=== PATIENT | male | born 1960 | race Caucasian/White ===

== ENCOUNTER → 2018-01-14 | Outpatient (REF) | payer BC, OTHER | LOC: M LAB REF 17:20 | DX: D51.9 Vitamin B12 deficiency anemia, unspecified (principal) | CPT/HCPCS: 82607 ==

== ENCOUNTER → 2018-08-06 | Outpatient (CLI) | payer BC, OTHER ==
[~2018-08-06] MED LIST: CLAR10CA3 PO; EPIP0.3I2 IM; FISH1000 PO; FLOM0.4C39 PO; GLUCCAP4 PO; MONT10TA2 PO; PRAV80TA2 PO; VITAD1000T PO; XARE10TA PO; ZYLO300T6 PO
[2018-08-06 18:26] LABS: CALCIUM LEVEL 8.9 MG/DL (8.5-10.1); CREATININE FOR GFR 1.36 MG/DL (0.70-1.30); GLOMERULAR FILTRATION RATE 57.3 (>56); POTASSIUM SERUM 4.4 MEQ/L (3.5-5.1); PROSTATIC SPECIFIC AG MONITOR 1.82 NG/ML (< 4.00)
[2018-08-06 18:38] LABS: AMORPHOUS SEDIMENT SMALL (NEGATIVE); APPEARANCE, URINE CLOUDY (CLEAR); BACTERIA, URINE AUTO NEGATIVE (NEGATIVE); BILIRUBIN, URINE AUTO NEGATIVE (NEGATIVE); BLOOD, URINE BLOOD NEGATIVE (NEGATIVE); COLOR, URINE YELLOW (YELLOW); GLUCOSE, URINE (UA) AUTO NEGATIVE (NEGATIVE); KETONE, URINE AUTO NEGATIVE (NEGATIVE); LEUKOCYTE ESTERASE, URINE AUTO NEGATIVE (NEGATIVE); MUCUS, URINE SMALL (NEGATIVE); NITRITE, URINE AUTO NEGATIVE (NEGATIVE); PROTEIN, URINE AUTO NEGATIVE (NEGATIVE); RBC, URINE AUTO 1 /HPF (0-3); SPECIFIC GRAVITY URINE AUTO 1.015 (1.002-1.035); SQUAMOUS EPITHELIAL CELL UR AU 0 /HPF (0-6); UROBILINOGEN, URINE AUTO 0.2 mg/dL (0.0-2.0); WBC, URINE AUTO 0 /HPF (0-3)
[2018-08-06 18:40] LABS: HEMOGLOBIN 15.4 g/dl (13.5-17.5); MEAN CORPUSCULAR HEMOGLOBIN 33.9 pg (27.0-33.0); MEAN CORPUSCULAR HGB CONC 32.8 g/dl (32.0-36.5); MEAN CORPUSCULAR VOLUME 103.5 fl (80.0-96.0); PLATELET COUNT, AUTOMATED 162 10^3/uL (150-450); RED BLOOD COUNT 4.54 10^6/uL (4.30-6.10); WHITE BLOOD COUNT 3.9 10^3/uL (4.0-10.0)
[2018-08-06 19:00] LABS: INR 1.12; PROTHROMBIN TIME 14.6 SECONDS (12.1-14.4)
[2018-08-06 19:01] LABS: PARTIAL THROMBOPLASTIN TIME 27.1 SECONDS (25.4-37.6)
--- NOTE | 2018-08-07 09:12 | REP ---
PA and lateral chest three views: Comparison is 01/18/2004. The lung alvarez are clear. The cardiac size is normal. The frankie, mediastinum, and skeletal structures are unremarkable. Impression: Negative PA and lateral chest. There is no interval change Electronically Signed by Kirill Yang MD 08/06/2018 10:14 A
== END ==
LOC: M ADAMS 09:45
PROVIDERS: ATTEND Nurse Practitioner Family
DX: Z01.818 Encounter for other preprocedural examination (principal); Z12.5 Encounter for screening for malignant neoplasm of prostate; N20.0 Calculus of kidney

== ENCOUNTER 2018-08-15 08:23 | Day surgery (SDC) | payer BC, OTHER ==
[~2018-08-15] VITALS: Ht 185.4 cm; Wt 85.5 kg
[~2018-08-15 08:23] MED LIST changes: +LIDOCAINE 1% MDV 20ML VIAL SQ PRN
[2018-08-15] MEDS ORDERED: CONRAY-60 60% 50ML VIAL (Q9961) As Ordered ONE (08:41)
[2018-08-15] MEDS ORDERED: LR 1,000 ML IV ONE (09:00)
[2018-08-15] MEDS ORDERED: LIDOCAINE 2% INJ 100 MG/5 ML SDV (FOR ANES.) As Ordered ONE (12:00)
[2018-08-15] MEDS ORDERED: dexameTHASONE 4 MG/ML 1ML VIAL (J1100) As Ordered ONE (12:00)
[2018-08-15] MEDS ORDERED: PROPOFOL 200 MG/20 ML VIAL As Ordered ONE (12:00)
[2018-08-15] MEDS ORDERED: ONDANSETRON 4MG/2ML VIAL (J2405) As Ordered ONE (12:00)
[2018-08-15] MEDS ORDERED: fentaNYL 100 MCG/2 ML INJECTION (J3010) As Ordered ONE (12:01)
[2018-08-15] MEDS ORDERED: MIDAZOLAM INJ 2 MG/2 ML VIAL (J2250) As Ordered ONE (12:01)
[2018-08-15] MEDS ORDERED: ROCURONIUM BROMIDE 50 MG/5 ML VIAL As Ordered ONE (18:53)
[2018-08-15] MEDS ORDERED: PERCOCET 5MG/325MG TAB PO PRN ×5 (20:15→20:30)
[2018-08-15] MEDS ORDERED: KETOROLAC 30 MG/ML VIAL (J1885) IV PRN (20:30)
[2018-08-15] MEDS ORDERED: METOCLOPRAMIDE INJ 10MG/2ML VIAL (J2765) IV PRN (20:30)
[2018-08-15] MEDS ORDERED: ONDANSETRON 4MG/2ML VIAL (J2405) IV PRN (20:30)
[2018-08-15] MEDS ORDERED: fentaNYL 100 MCG/2 ML INJECTION (J3010) IV PRN (20:30)
[2018-08-15] MEDS ORDERED: LR 1,000 ML IV SCH (20:30)
[2018-08-15] MEDS ORDERED: oxyBUTYnin 5 MG TAB PO ONE (22:00)
[2018-08-15 23:18] VITALS: BP 140/84
--- NOTE | 2018-08-16 07:34 | REP ---
REASON: Retrograde pyelography due to nephrolithiasis. Four spot views were obtained in my absentia using a portable C-ARM device during retrograde pyelography and bilaterally and bilateral double pigtail catheter placement. The double pig-tail catheters are seen. The proximal portion of each os in the region of the renal pelvis and the distal portion of each is in the urinary bladder. Electronically Signed by Tony Daniels DO 08/16/2018 04:33 P
--- NOTE | 2018-08-16 20:26 | RO ---
DATE OF PROCEDURE: 08/15/2018 PREPROCEDURE DIAGNOSIS: Bilateral kidney stones. POSTPROCEDURE DIAGNOSIS: Bilateral kidney stones. PROCEDURE: Cystoscopy, bilateral ureteroscopy with basket extraction of stones, bilateral retrograde pyelogram with intraoperative interpretation of images, bilateral ureteral stent placement. SURGEON: Dr. David Abdalla BANDING MACHINE OPERATOR: None. ANESTHESIA: General. OPERATIVE INDICATIONS: This is a 58-year-old male who was originally found to have a 4 mm obstructing proximal right ureteral stone, as well as a left-sided kidney stone. He was brought to the operating room today for the above listed procedure. DESCRIPTION OF PROCEDURE: The patient was brought to the operating room and general anesthesia was induced. Prophylactic antibiotics were infused. He was then placed in the dorsal lithotomy position and prepped and draped in the usual sterile fashion. At this point, a rigid cystoscope was then inserted into the urethral meatus and advanced into the bladder. Once inside the bladder, a guidewire was advanced up the right collecting system. I then advanced the ureteral access sheath over the wire. I went up the access sheath with a flexible ureteroscope, and the right kidney was thoroughly examined. No stones were seen within the right kidney after thoroughly examining it. A retrograde pyelogram was performed. It was notable for mild right hydronephrosis with no extravasation. I then examined the proximal ureter. No stones were seen within the ureter, indicating that he had passed this proximal ureteral stone. The ureteroscope was then withdrawn along with the access sheath. At this point, the previously placed wire was utilized to advance a 6-Belarusian x 22-32 cm JJ ureteral stent up into the right collecting system. The wire was then removed, and there were adequate curls of the stent in the right renal pelvis and in the bladder. At this point, a wire was advanced up the left collecting system. I then advanced an access sheath up the left collecting system, and then went up the access sheath with a flexible ureteroscope. The left kidney was thoroughly examined. The only stone seen was approximately 3-4 mm in size. I did not see any larger stones after examining it several times. A retrograde pyelogram was performed; it was notable for mild left hydronephrosis. No extravasation. That 4 mm stone was removed with a basket. I then withdrew through the ureteroscope along with the access sheath and no stones were seen within the ureter. Once that was done, the wire was utilized to advance a 6-Belarusian x 22-32 cm JJ ureteral stent up into the left collecting system. The wire was then removed, and there were adequate curls of the stent in the left renal pelvis and in the bladder. The bladder was then emptied of all fluids, and this marked the conclusion of the procedure. The patient was then taken out of the dorsal lithotomy position, awakened from anesthesia and transported to the recovery room in stable condition. Estimated blood loss: 5 mL. Complications: None. Specimens: Kidney stones. PLAN: The patient will followup in the clinic in approximately 2 weeks for stent removal. edited: 08/17/2018 1222 tkf MAME
== END 2018-08-15 23:44 | disposition home or self-care (01) ==
LOC: M SDC 08:23
PROVIDERS: ATTEND Urology
DX: N20.2 Calculus of kidney with calculus of ureter (principal); E78.5 Hyperlipidemia, unspecified; Z91.030 Bee allergy status; Z79.899 Other long term (current) drug therapy; Z79.01 Long term (current) use of anticoagulants; Z86.718 Personal history of other venous thrombosis and embolism
CPT/HCPCS: 52332; 52352; 74420; 82360; 88300; C1769; C1894; C2617; J0690; J1100; J1885; J2250; J2405; J3010; Q9961

== ENCOUNTER → 2019-03-21 | Outpatient (CLI) | payer BC, OTHER ==
[~2019-03-21] MED LIST changes: +CHOL100029 PO; -LIDOCAINE 1% MDV 20ML VIAL SQ PRN; -VITAD1000T PO
--- NOTE | 2019-03-21 08:35 | REPPI ---
Clinical: Kidney stone. Technique: Two supine views of the abdomen and pelvis. Findings: Small calculi overlying the upper pole right kidney in total measure up to approximately 5.6 mm and may represent small grouping of nonobstructing nephroliths. Further evaluation of the urinary tract system is limited due to overlying bowel gas pattern. 3 mm calcification in the left lexis pelvis likely phleboliths. The bowel gas pattern is relatively nonspecific with a prominent amount of retained fecal material noted in the cecum through mid transverse colon somewhat limiting evaluation of the right kidney. No organomegaly. Skeletal structures demonstrate age-related changes. Impression: Possible small grouping of left upper pole renal calculi measuring approximately 5.6 mm total. Evaluation of the right kidney is significantly limited due to overlying bowel gas. Electronically Signed by Satish Martínez MD 03/21/2019 08:26 A
== END ==
LOC: M PLAIMG 08:01 → M PLALAB 08:01
PROVIDERS: ATTEND Urology
DX: N20.0 Calculus of kidney (principal)

== ENCOUNTER → 2019-04-21 | Outpatient (CLI) | payer BC, OTHER ==
--- NOTE | 2019-04-21 18:07 | REP ---
Right knee series: Five views. History: Sprain. Findings: By views of the right knee demonstrate fullness in the suprapatellar bursa indicative of a large joint effusion. Vascular calcification is noted. There is minimal patellar spurring inferiorly. No acute bony abnormality. Impression: Large joint effusion. No fracture seen. Minimal patellar spurring. Electronically Signed by Андрей Nieto MD 04/21/2019 05:59 P
== END ==
LOC: M WUC 17:42
PROVIDERS: ATTEND Physician Assistant
DX: M25.761 Osteophyte, right knee (principal); M25.461 Effusion, right knee; S83.421A Sprain of lateral collateral ligament of right knee, initial encounter; X58.XXXA Exposure to other specified factors, initial encounter

== ENCOUNTER → 2020-03-21 | Outpatient (CLI) | payer BC, OTHER ==
[~2020-03-21] MED LIST changes: -MONT10TA2 PO; +MONT5TAB2 PO
--- NOTE | 2020-03-21 10:14 | REP ---
INDICATION: KIDNEY STONE COMPARISON: None. TECHNIQUE: Supine view of the abdomen and pelvis. FINDINGS: Moderate fecal stasis is suggested. No bowel obstruction or perforation. Further evaluation is limited due to overlying bowel gas pattern. Skeletal structures are intact. IMPRESSION: Limited evaluation for urinary tract calcifications due to overlying fecal stasis and bowel pattern. <Electronically signed by Satish Martínez > 03/21/20 1017
== END ==
LOC: M ADAMS 09:12
PROVIDERS: ATTEND Urology
DX: N20.0 Calculus of kidney (principal)

== ENCOUNTER → 2020-03-26 | Outpatient (REF) | payer OTHER ==
[2020-03-26 14:53] LABS: APPEARANCE, URINE CLEAR (CLEAR); BACTERIA, URINE AUTO NEGATIVE (NEGATIVE); BILIRUBIN, URINE AUTO NEGATIVE (NEGATIVE); BLOOD, URINE BLOOD 2+ (NEGATIVE); COLOR, URINE YELLOW (YELLOW); GLUCOSE, URINE (UA) AUTO NEGATIVE (NEGATIVE); KETONE, URINE AUTO NEGATIVE (NEGATIVE); LEUKOCYTE ESTERASE, URINE AUTO NEGATIVE (NEGATIVE); MUCUS, URINE SMALL (NEGATIVE); NITRITE, URINE AUTO NEGATIVE (NEGATIVE); PROTEIN, URINE AUTO NEGATIVE (NEGATIVE); RBC, URINE AUTO 128 /HPF (0-3); SPECIFIC GRAVITY URINE AUTO 1.016 (1.002-1.035); SQUAMOUS EPITHELIAL CELL UR AU 0 /HPF (0-6); UROBILINOGEN, URINE AUTO 0.2 mg/dL (0.0-2.0); WBC, URINE AUTO 0 /HPF (0-3)
== END ==
LOC: M SMT 13:14
PROVIDERS: ATTEND Urology
DX: R31.0 Gross hematuria (principal)

== ENCOUNTER → 2020-03-28 | Outpatient (REF) | payer OTHER ==
[2020-03-28 18:07] LABS: BLOOD UREA NITROGEN 17 MG/DL (7-18); CALCIUM LEVEL 9.4 MG/DL (8.8-10.2); CARBON DIOXIDE LEVEL 28 MEQ/L (21-32); CHLORIDE LEVEL 108 MEQ/L (98-107); CREATININE FOR GFR 1.13 MG/DL (0.70-1.30); GLOMERULAR FILTRATION RATE > 60.0 (>49); GLUCOSE, FASTING 92 MG/DL (70-100); POTASSIUM SERUM 4.3 MEQ/L (3.5-5.1); SODIUM LEVEL 142 MEQ/L (136-145)
== END ==
LOC: M LABDRWAD 16:36
PROVIDERS: ATTEND Urology
DX: Z12.5 Encounter for screening for malignant neoplasm of prostate (principal); N20.0 Calculus of kidney; R31.0 Gross hematuria
CPT/HCPCS: 36415; 80048; G0103

== ENCOUNTER → 2020-04-05 | Outpatient (CLI) | payer BC, OTHER ==
[~2020-04-05] MED LIST changes: +ISOVUE-370 76% 100ML VIAL As Ordered ONE
--- NOTE | 2020-04-05 17:07 | REP ---
INDICATION: KIDNEYSTONE. COMPARISON: comparison CT study June 24, 2018.. TECHNIQUE: Contrast dose: 100 ML of Isovue [address] technique: Helical scanning is acquired and 3 mm axial images are reformatted. In addition,multiplanar re-formation images are generated in sagittal and coronal imaging projections. Delayed phase postcontrast imaging is included. FINDINGS: Preliminary digital machine records units supervisor radiograph is unremarkable. The lung bases demonstrated is 6 mm pleural based pulmonary nodule in the left lower lobe posteriorly. This is seen projected on image number 12 of 52 and series 202 of today's study. There is some mild linear fibrosis in the lower lobes bilaterally. The lung bases are otherwise clear. The nodule is a visible on prior CT study June 24, 2018 and is unchanged.Indeed, this is visible on the prior study from September 09, 2011. This is a benign nodule. The liver and the spleen are normal in size homogeneous in texture. No focal hepatic lesion is seen. Normal adrenal glands are observed. There are intrarenal calculi in the collecting system of both kidneys. In the r upper pole 8 mm in diameter. In the upper pole on the right there are 2 calculi the largest of which is 4 mm. There is no evidence hydronephrosis on either side. There is a cyst in the lower pole of the left kidney which appears simple measuring 3.8 cm in greatest diameter. This is unchanged. No renal mass lesion is observed. Delayed scan images show no filling defect in the collecting system on either side. A tiny cortical cyst is visible it midpole level on the right. No retroperitoneal mass or adenopathy is observed. Small and large intestinal bowel loops are unremarkable. Prostate is enlarged and contains 1 or 2 dystrophic calcifications. Seminal vesicles and urinary bladder are unremarkable. A normal appendix is visible. No bony destructive lesion is appreciated. There is no evidence of enhancing bladder mass or filling defect in the bladder on delayed scan images. There is a fairly large calculus measuring IMPRESSION: Bilateral intrarenal nephrolithiasis with the largest calculus at present in the upper pole on the left. No hydronephrosis is seen. Bilateral renal cortical cysts. No urinary tract mass is seen. Enlarged prostate. <Electronically signed by Israel Nieto > 04/05/20 1285
== END ==
LOC: M RAD 14:11
PROVIDERS: ATTEND Urology
DX: R31.0 Gross hematuria (principal)
CPT/HCPCS: 74178; Q9967

== ENCOUNTER → 2020-05-15 | Outpatient (REF) | payer OTHER ==
[~2020-05-15] MED LIST changes: -ISOVUE-370 76% 100ML VIAL As Ordered ONE; +MONT10TA10 PO; -MONT5TAB2 PO
[2020-05-15 14:43] LABS: INR 1.6; PARTIAL THROMBOPLASTIN TIME 31.4 SECONDS (24.2-38.5); PROTHROMBIN TIME 19.4 SECONDS (12.5-14.3)
== END ==
LOC: M LAB REF 12:06
PROVIDERS: ATTEND Internal Medicine
DX: N20.0 Calculus of kidney (principal)

== ENCOUNTER → 2020-05-20 | Outpatient (CLI) | payer BC, OTHER ==
[~2020-05-20] MED LIST changes: -MONT10TA10 PO; +MONT5TAB2 PO
--- NOTE | 2020-05-21 06:27 | REP ---
INDICATION: KIDNEY STONE COMPARISON: 08/06/2018 TECHNIQUE: PA and lateral. FINDINGS: The mediastinum and cardiac silhouette are normal. The lung alvarez are clear and without acute consolidation, effusion, or pneumothorax. The skeletal structures are intact and normal. IMPRESSION: No acute cardiopulmonary process. <Electronically signed by Satish Martínez > 05/21/20 0615
== END ==
LOC: M ADAMS 11:43
PROVIDERS: ATTEND Urology
DX: N20.0 Calculus of kidney (principal)

== ENCOUNTER → 2020-06-08 | Outpatient (CLI) | payer BC, OTHER ==
[~2020-06-08] MED LIST changes: +D31000TA2 PO; +MONT10TA10 PO; -MONT5TAB2 PO
== END ==
LOC: M LABSMTC 08:14
PROVIDERS: ATTEND Anesthesiology
DX: Z01.812 Encounter for preprocedural laboratory examination (principal); Z20.822 Contact with and (suspected) exposure to COVID-19

== ENCOUNTER 2020-06-13 06:36 | Day surgery (SDC) | payer BC, OTHER ==
[~2020-06-13] VITALS: Ht 185.4 cm; Wt 85.3 kg
[~2020-06-13 06:36] MED LIST changes: +LIDOCAINE 1% MDV 20ML VIAL SQ PRN; +LR 1,000 ML IV ONE; +ceFAZolin SOD 2 GM in IV 1 EA IV ONE
--- OUTSIDE RECORDS SUMMARY | 2020-06-13 06:41 | CCD | Continuity of Care Document ---
Author Author Hernán TRUJILLO Organization Unknown Address [address] [address] Phone [phone] Care Team Providers Care Solid Waste Manager Name Role Phone Alyx Trujillo DO AUTM Unavailable Juliocesar Anderson M.D. AUTM Unavailable [facility] AUTM [phone] Problems Active Problems Provider Date Therapeutic drug monitoring assay Prabha Saeed EXPLOSIVE ORDNANCE SPECIALIST Onset: 12/29/2010 Deep venous thrombosis of lower extremity Prabha Saeed EXPLOSIVE ORDNANCE SPECIALIST Onset: 01/09/2011 Postthrombotic syndrome Prabha Saeed EXPLOSIVE ORDNANCE SPECIALIST Onset: 1 Social History Type Date Description Comments Sex Unknown ETOH Use Occasionally consumes alcohol Tobacco Use Start: Unknown Patient has never smoked Allergies, Adverse Reactions, Alerts Description No Known Drug Allergies Medications Active Medications SIG Qnty Indications Ordering Provide r Date Tamsulosin HCL 0.4mg Capsules 1 daily 1/2 hour after same meal 30caps Alyx Trujillo DO 06/24/2018 Epipen 2-Artem 0.3mg/0 .3ML Solution Auto-Inject as directed 2units Alyx Trujillo DO 09/20/2017 Xarelto 10mg Tablets Take One Tablet By Mouth Every Day 90tabs Alyx Trujillo DO 04/09/2017 Montelukast Sodium 10mg Tablets Take One Tablet By Mouth AT Bedtime 90tabs Alyx Trujillo DO 04/07 Loratadine 10mg Tablets 1 by mouth every day prn 30tabs Alyx Trujillo DO 02/26/2014 Vitamin D3 1000Unit Capsules 2 po qd Alyx Trujillo DO 02/12/2012 Fish Oil 1000mg Capsules 4 by mouth every day Alyx Trujillo DO 02/12/2012 Glucosamine Chondroitin Tablets 2 po qd Alyx TrujilloDO 02/12/2012 Pravastatin Sodium 80mg Tablets Take One Tablet By Mouth AT Bedtime 90tabs Alyx Trujillo,DO 05/17 Medications Administered in Office Medication SIG Qnty Indications Ordering Provider Date Immunization Adminstration,1 Vaccine/Tox oid Injection Alyx Trujillo,DO 01/14/2018 Immunizations CPT Code Status Date Vaccine Lot # U-Flu Given 01/21/2019 Influenza,Unspecified [id number] Given 01/14/2018 Influenza Virus Vaccine, Quadrivalent (Cciiv4), Derived From 3 Given 08/22/2013 Zoster Vaccine [id number] Given 01/13/2012 Fluvirin Virus Vaccine [id number] Given 02/04/2011 Fluvirin Virus Vaccine [id number] Given 03/18/2010 Influenza Virus Vaccine Vital Signs Date Vital Result Comment 05/15/2020 8:31am BP Systolic 120 mmHg BP Diastolic 80 mmHg Heart Rate 54 /min Height 73 inches 6'1" Weight 190.00 lb O2 % BldC Oximetry 97 % RM Air BMI (Body Mass Index) 25.1 kg/m2 11/10/2019 8:32am BP Systolic 120 mmHg RT Arm BP Diastolic 80 mmHg RT Arm Heart Rate 56 /min Height 73 inches 6'1" Weight 185.12 lb BMI (Body Mass Index) 24.4 kg/m2 Results Test Acquired Date Facility Test Result H/L Range Note PT & Aptt 05/15/2020 [facility] [address] [place] [address] [phone] Prothrombin Time 19.4 seconds High 12.5-14.3 Inr 1.60 Normal 1 Partial Thromboplastin Time 31.4 seconds Normal 24.2-38.5 Laboratory test finding 05/15/2020 [facility] [address] [place] [address] [phone] Urine Culture FULL REPORT IN L <SEE NOTE> Normal 2 Complete Blood Count 05/15/2020 [facility] End Frazer: [place] [address] [phone] WBC 3.8 x10*3/UL Low 4.1 - 10.9 RBC 4.41 x10*6/UL 4.20 - 6.30 Hemoglobin 14.8 g/dL 12.0 - 18.0 Hematocrit 42.8 % 37.0 - 51.0 MCV 96.9 fL 80.0 - 97.0 MCH 33.6 pg High 26.0 - 32.0 MCHC 34.7 g/dL 31.0 - 38.0 RDW 12.5 % 11.6 - 13.7 PLT 159 x10*3/UL 140 - 440 MPV 9.4 FL 7.8 - 11.0 Lymph % 34.3 % 10.0 - 58.5 Mid % 6.8 % 1.7 - 9.3 Neut % 58.9 % 37.0 - 92.0 Lymph # 1.3 x10*3/UL 0.6 - 4.1 Mid # 0.3 x10*3/UL 0.1 - 0.6 Neut # 2.2 x10*3/UL 2.0 - 7.8 Basic Metabolic Panel 05/15/2020 [facility] End [facility]: Dr [place], [place] [id number] [phone] Glucose 96 mg/dL 74 - 99 3 BUN 20 mg/dL High 7 - 18 Creatinine 1.2 mg/dL 0.6 - 1.3 Sodium 142 mEq/L 136 - 145 Potassium 4.6 mEq/L 3.5 - 5.1 Chloride 104 mEq/L 98 - 107 Carbon Dioxide 32 mEq/L 21 - 32 Calcium 9.1 mg/dL 8.5 - 10.1 GFR >= 60 mL/min >60 GFR >= 60 mL/min >60 4 1 THERAPUTIC HUMAN INR VALUES INDICATIONS NORMAL RANGES PROPHYLAXIS/TREATMENT OF: VENOUS THROMBOSIS 2.0-3.0 PULMONARY EMBOLISM 2.0-3.0 PREVENTION OF SYSTEMIC EMBOLISM FROM: TISSUE HEART VALVES 2.0-3.0 ACUTE MYOCARDIAL INFARCTION 2.0-3.0 VALVULAR HEART DISEASE 2.0-3.0 ATRIAL FIBRILLATION 2.0-3.0 MECHANICAL VALVES(HIGH RISK) 2.5-3.5 RECURRENT MYOCARDIAL INFARCTION 2.5-3.5 2 FULL REPORT IN LAB NOTES (eC W and Med[facility]). NO GROWTH 3 100-125 mg/dL PRE-DIABET ES/FASTING >126 mg/dL DIABETES/FASTING 4 CHRONIC KIDNEY DISEASE STAGI NG PER NKF STAGE I & II GFR >= 60 NORMAL TO MILDLY DECREASED STAGE III GFR 30-59 MODERATELY DECREASED STAGE IV GFR 15-29 SEVERELY DECREASED STAGE V GFR <15 VERY LITTLE GFR LEFT ESRD GFR <15 ON BOUFFANT CURTAIN MACHINE TENDER Procedures Date Code Description Status 06/17/2012 [id number] Colonoscopy Completed 05/30/2010 [id number] Colonoscopy Completed Medical Devices Description No Information Available Encounters Description No Information Available Assessments Description No Information Available Plan of Treatment 11/10/2019 - Alyx Trujillo DO* I82.5Y2 Chronic embolism and thrombosis of unspecified deep veins of * I87.002 Postthrombotic syndrome without complications of left lower * Z79.01 intermediate card tender (current) use of anticoagulants * N20.0 Calculus of kidney * E78.5 Hyperlipidemia, unspecified * E55.9 Vitamin D deficiency, unspecified * All * Comments:* Will see him back for a follow up visit in 6 months Functional Status Description No Information Available Mental Status Description No Information Available Referrals Description No Information Available
--- OUTSIDE RECORDS SUMMARY | 2020-06-13 06:41 | CCD | Continuity of Care Document ---
Author Author Hernán TRUJILLO Organization Unknown Address [address] [address] Phone [phone] Care Team Providers Care Tower Climber Name Role Phone Alyx Trujillo DO AUTM Unavailable Juliocesar Anderson M.D. AUTM Unavailable [facility] AUTM Problems Active Problems Provider Date Therapeutic drug monitoring assay Prabha Saeed ENZYME CHEMIST Onset: 12/29/2010 Deep venous thrombosis of lower extremity Prabha Saeed ENZYME CHEMIST Onset: 01/09/2011 Postthrombotic syndrome Prabha Saeed ENZYME CHEMIST Onset: 1 Social History Type Date Description [...] Vaccine Lot # U-Flu Given 01/21/2019 Influenza,Unspecified [id number] Given 01/14/2018 Influenza Virus Vaccine, Quadrivalent (Cciiv4), Derived From 8 Given 08/22/2013 Zoster Vaccine [id number] Q2037 Given 01/13/2012 Fluvirin Virus Vaccine Q2037 Given 02/04/2011 Fluvirin Virus Vaccine [id number] Given 03/18/2010 Influenza Virus Vaccine Vital Signs [...] H/L Range Note PT & Aptt 05/15/2020 [facility] [address] [place] [address] [phone] Prothrombin Time 19.4 seconds High 12.5-14.3 Inr 1.60 Normal 1 Partial Thromboplastin Time 31.4 seconds Normal 24.2-38.5 Laboratory test finding 05/15/2020 [facility] [address] [place] [address] [phone] Urine Culture FULL REPORT IN L <SEE NOTE> Normal 2 Complete Blood Count 05/15/2020 [facility] Residential Leasing Agent: [place] [address] [phone] WBC 3.8 x10*3/UL Low 4.1 - 10.9 [...] 2.0 - 7.8 Basic Metabolic Panel 05/15/2020 [facility] Residential Leasing Agent: Dr [place], [place] [id number] [phone] Glucose 96 mg/dL 74 - 99 3 [...] LITTLE GFR LEFT ESRD GFR <15 ON BENZENE STILL UTILITY OPERATOR Procedures Date Code Description Status 06/17/2012 [id number] Colonoscopy Completed 05/30/2010 [id number] Colonoscopy Completed Medical Devices Description No Information Available Encounters Description No Information Available Assessments Description No Information Available Plan of Treatment 11/10/2019 - Alyx Trujillo DO* I82.5Y2 Chronic embolism and thrombosis of unspecified deep veins of * I87.002 Postthrombotic syndrome without complications of left lower * Z79.01 terminal block assembler (current) use of anticoagulants * N20.0 Calculus of kidney * E78.5 Hyperlipidemia, unspecified * E55.9 Vitamin D deficiency, unspecified * All * Comments:* Will see him back for a follow up visit in 6 months Functional Status Description No Information Available Mental Status Description No Information Available Referrals Description No Information Available
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
--- OUTSIDE RECORDS SUMMARY | 2020-06-13 06:42 | CCD ---
Author Author [facility] Organization [facility] Address Unknown Phone Unavailable Care Team Providers Care Export Administrator Name Role Phone David Abdalla Unavailable PROBLEMS Type Condition ICD9-CM Code [id number] Code Onset Dates Condition S tatus SNOMED Code Notes Problem Prostate cancer screening Z12.5 Active 244295 002 Problem Gross hematuria R31.0 Active 046462701 Problem Calculus of kidney 592.0 Active 04808200 Problem Kidney stone N20.0 Active 26413834 ALLERGIES Allergen (clinical drug ingredient) Drug/Non Drug Allergy do cumented on EMR Reaction Allergy Type Onset Date Status BEE STINGS Anaphylaxis Non Drug Allergy Active ENCOUNTERS from 1960 to 2020-05-11 Encounter Location Date Provider Diagnosis [facility] Urology [address] [place] [address] Apr David Abdalla Kidney stone N20.0 IMMUNIZATIONS No Information SOCIAL HISTORY Sex Assigned At : Social History Observation Description Sex Assigned At Unknown Education: Question Answer Notes Level of Education: Finished College Baptist: Question Answer Notes Baptist NONE Sexual Hx: Question Answer Notes Had [...] Notes Start Da te End Date Status Montelukast Sodium 10 MG 1 tablet Orally Once a day Active Warfarin Sodium 5 MG 1 tablet Orally Once a day for 30 day(s) Not-Taking Keflex 500 MG 1 capsule 1 hr prior to your cystoscopy Orally a s directed Mar, Active Vitamin C 500 MG 1 tablet Orally Once a day for 30 day(s) Not-Taking Fish Oil 1000 MG 4 capsule Orally Twice a day Not-Taking Oxybutynin Chloride 5 MG 1 tablet Orally every 8 hour s as needed for bladder spasms or urinary frequency Jul, Not- Taking Glucosamine Chondr 1500 Complx 2 Orally QD Active Pravastatin 80 80mg as directed oral Active Multivitamins as directed Orally Not -Taking Ciprofloxacin HCl 500 MG 1 tablet for your cystoscopy today Orally as directed August, Not-Taking Benzonatate 100 MG 1 capsule as needed Orally Three times a day Active Flomax 0.4 MG 1 capsule Orally Once a day Not-Taking Vitamin D 1000 UNIT 2 tablet Orally Once a day Active EpiPen 2-Artem 0.3 MG/0.3ML Injection Active Percocet 5-325 MG 1 tablet Orally every 6 hrs as needed for pain (MDD 4) Jul, Not-Taking Loratadine 10 MG 1 tablet Orally Once a day Active Xarelto 10 MG 1 tablet with food Orally Once a day Active PROCEDURES No Information RESULTS No Results REASON FOR VISIT KUB post op MEDICAL (GENERAL) HISTORY Type Description Date Medical [...] Surgical History CYSTOSCOPY KAYLA STENT REMOVAL 08/29/2018 Surgical History cystoscopy 05/01/2020 Hospitalization History SX RELATED Goals Section No Information Health Concerns No Information MEDICAL EQUIPMENT No Information MENTAL STATUS No Information FUNCTIONAL STATUS No Information ASSESSMENTS Encounter Date Diagnosis Assessment Notes Treatment Notes Treatm ent Clinical Notes Apr, Kidney stone (ICD-10 - N20.0) PLAN OF TREATMENT Treatment Notes Test Name Order Date PLZ ABDOMEN 1 VIEW (KUB) 2020-05-11 Next Appt Details Provider Name:Satya Aguilar, 2020-07-02 09:00:00 AM, [address], [place], [address], Insurance Providers Payer Name Payer Address Payer Phone Insured Name Patient Relati onship to Insured Coverage Start Date Coverage End Date [facility] [address] [facility] [id number] KATERYNA ROACH self
--- OUTSIDE RECORDS SUMMARY | 2020-06-13 06:42 | CCD ---
Author Author [facility] Organization [facility] Address Unknown Phone Unavailable Care Team Providers Care Python Web Developer Name Role Phone David Abdalla Unavailable PROBLEMS Type Condition ICD9-CM Code [id number] Code Onset Dates Condition S tatus SNOMED Code Notes Problem Prostate cancer screening Z12.5 Active 852637 002 Problem Gross hematuria R31.0 Active 532668122 Problem Calculus of kidney 592.0 Active 52649456 Problem Kidney stone N20.0 Active 17398064 ALLERGIES Allergen (clinical drug ingredient) Drug/Non Drug Allergy do cumented on EMR Reaction Allergy Type Onset Date Status BEE STINGS Anaphylaxis Non Drug Allergy Active ENCOUNTERS from 1960 to 2020-03-28 Encounter Location Date Provider Diagnosis [facility] Urology [address] [place] [address] Mar David Abdalla Kidney stone N20.0 ; Prostate cancer scr eening Z12.5 and Gross hematuria R31.0 IMMUNIZATIONS No Information SOCIAL HISTORY Sex Assigned At : Social History Observation Description Sex Assigned At Unknown Education: Question Answer Notes Level of Education: Finished College Yazidism: Question Answer Notes Yazidism NONE Sexual Hx: Question Answer Notes Had [...] REASON FOR REFERRAL No Information VITAL SIGNS Weight 192.2 lbs Mar, Height 73 in Mar, BMI 25.35 kg/m2 Mar, Heart Rate 58 /min Mar, Respiratory Rate 18 /min Mar, Temperature 97.4 degrees Fahrenheit Mar, Oximetry 100% Mar, Blood pressure systolic 149 mm Hg Mar, Blood pressure diastolic 95 mm Hg Mar, MEDICATIONS Medication SIG (Take, Route, Frequency, Duration) Notes Start Da te End Date Status Xarelto 10 MG 1 tablet with food Orally Once a day Active EpiPen 2-Artem 0.3 MG/0.3ML Injection Active Fish Oil 1000 MG 4 capsule Orally Twice a day Not-Taking Montelukast Sodium 10 MG 1 tablet Orally Once a day Active Ciprofloxacin HCl 500 MG 1 tablet for your cystoscopy today Orally as directed August, Not-Taking Loratadine 10 MG 1 tablet Orally Once a day Active Vitamin D 1000 UNIT 2 tablet Orally Once a day Active Vitamin C 500 MG 1 tablet Orally Once a day for 30 day(s) Not-Taking Flomax 0.4 MG 1 capsule Orally Once a day Not-Taking Multivitamins as directed Orally Not -Taking Percocet 5-325 MG 1 tablet Orally every 6 hrs as needed for pain (MDD 4) Jul, Not-Taking Glucosamine Chondr 1500 Complx 2 Orally QD Active Oxybutynin Chloride 5 MG 1 tablet Orally every 8 hour s as needed for bladder spasms or urinary frequency Jul, Not- Taking Pravastatin 80 80mg as directed oral Active Warfarin Sodium 5 MG 1 tablet Orally Once a day for 30 day(s) Not-Taking Keflex 500 MG 1 capsule 1 hr prior to your cystoscopy Orally a s directed Mar, Active Benzonatate 100 MG 1 capsule as needed Orally Three times a day Active PROCEDURES No Information RESULTS Component Value Reference Range UA URINALYSIS Reviewed date:03/26/2020 17:14:37 Interpretation: Performing Lab:[facility] LABORATORY [address] [address] , ,[place] [address] URINE CULTURE Reviewed date:03/27/2020 09:40:03 Interpretation: Performing Lab:[facility] LABORATORY [address] [address] , ,[place] [address] Basic Metabolic Profile (BMP) Reviewed date:03/29/2020 11:16:36 Interpretation: Performing Lab:[facility] LABORATORY [address] [address] , ,[place] [address] GLUCOSE, FASTING 92 70-100 BLOOD UREA NITROGEN 17 7-18 CREATININE FOR GFR 1.13 0.70-1.30 GLOMERULAR FILTRATION RATE > 60.0 >49 SODIUM LEVEL 142 136-145 POTASSIUM SERUM 4.3 3.5-5.1 CHLORIDE LEVEL 108 98-107 CARBON DIOXIDE LEVEL 28 21-32 CALCIUM LEVEL 9.4 8.8-10.2 PSA SCREENING Reviewed date:03/29/2020 11:16:28 Interpretation: Performing Lab:[facility] LABORATORY [address] [id number] , ,[facility] PSA SCREENING 1.50 < 4.00 REASON FOR VISIT yearly fu with kub kidney stones MEDICAL (GENERAL) HISTORY Type Description Date Medical [...] Notes Mar, Kidney stone (ICD-10 - N20.0) - check PSA - send urine for UA and culture - schedule CT urogram - f/u for cystoscopy Mar, Prostate cancer screening (ICD-10 - Z12.5) Mar, Gross hematuria (ICD-10 - R31.0) PLAN OF TREATMENT Medication Medication Name Sig Start Date Stop Date Keflex 500 MG 1 capsule 1 hr prior to your cystoscopy Orally as directed Mar, Treatment Notes Assessment Notes Clinical Notes Kidney stone - check PSA- send ur ine for UA and culture- schedule CT urogram- f/u for cystoscopy Treatment Notes Test Name Order Date PSA SCREENING 2020-03-28 Basic Metabolic Profile (BMP) 2020-03-28 CT Scan : Urogram (Abdomen/Pelvis) 2020-03-28 Next Appt Details cystoscopy Reason:gross hematuria Provider Name:David Abdalla, 02:15:00 PM, [address], [place], [address], Follow Up:cystoscopygross hematuria Insurance Providers Payer Name Payer Address Payer Phone Insured Name Patient Relati onship to Insured Coverage Start Date Coverage End Date [facility] [address] [facility] [id number] [phone] KATERYNA ROACH
--- OUTSIDE RECORDS SUMMARY | 2020-06-13 06:42 | CCD ---
Author Author [facility] Organization [facility] Address Unknown Phone Unavailable Care Team Providers Care Leather Crafter Name Role Phone Monica Juliocesar Unavailable PROBLEMS Type Condition ICD9-CM Code [id number] Code Onset Dates Condition S tatus SNOMED Code Notes Problem Prostate cancer screening Z12.5 Active 610697 002 Problem Gross hematuria R31.0 Active 627912849 Problem Calculus of kidney 592.0 Active 72679905 Problem Kidney stone N20.0 Active 46626014 ALLERGIES Allergen (clinical drug ingredient) Drug/Non Drug Allergy do cumented on EMR Reaction Allergy Type Onset Date Status BEE STINGS Anaphylaxis Non Drug Allergy Active ENCOUNTERS from 1960 to 2020-04-30 Encounter Location Date Provider Diagnosis [facility] Urology [address] [place] [address] Apr Juliocesar Anderson IMMUNIZATIONS No Information SOCIAL HISTORY Sex Assigned At : Social History Observation Description Sex Assigned At Unknown Education: Question Answer Notes Level of Education: Finished College Restoration: Question Answer Notes Restoration NONE Sexual Hx: Question Answer Notes Had [...] Information RESULTS No Results REASON FOR VISIT 05/01/2020 appt MEDICAL (GENERAL) HISTORY Type Description Date Medical [...] No Information FUNCTIONAL STATUS No Information ASSESSMENTS No Information PLAN OF TREATMENT Medication Medication Name Sig Start Date Stop Date Keflex 500 MG 1 capsule 1 hr prior to your cystoscopy Orally as directed Mar, Next Appt Details Provider Name:Juliocesar Mendes Anderson, 2020-05-01 10:00:00 AM, [address], [place], [address], Insurance Providers Payer Name Payer Address Payer Phone Insured Name Patient Relati onship to Insured Coverage Start Date Coverage End Date [facility] [address] [facility] [id number] KATERYNA ROACH self
--- OUTSIDE RECORDS SUMMARY | 2020-06-13 06:42 | CCD ---
Author Author [facility] Organization [facility] Address Unknown Phone Unavailable Care Team Providers Care Roll Hand Name Role Phone Juliocesar Anderson Unavailable PROBLEMS Type Condition ICD9-CM Code [id number] Code Onset Dates Condition S tatus SNOMED Code Notes Problem Prostate cancer screening Z12.5 Active 534095 002 Problem Gross hematuria R31.0 Active 750233252 Problem Calculus of kidney 592.0 Active 00208592 Problem Kidney stone N20.0 Active 09642935 ALLERGIES Allergen (clinical drug ingredient) Drug/Non Drug Allergy do cumented on EMR Reaction Allergy Type Onset Date Status BEE STINGS Anaphylaxis Non Drug Allergy Active ENCOUNTERS from 1960 to 2020-05-06 Encounter Location Date Provider Diagnosis [facility] Urology [address] [place] [address] Apr Juliocesar Anderson Kidney stone N20.0 and Gross hematuria R 31.0 IMMUNIZATIONS No Information SOCIAL HISTORY Sex Assigned At : Social History Observation Description Sex Assigned At Unknown Education: Question Answer Notes Level of Education: Finished College Methodist: Question Answer Notes Methodist NONE Sexual Hx: Question Answer Notes Had [...] FOR REFERRAL No Information VITAL SIGNS Weight 188.8 lbs Apr, Height 73 in Apr, BMI 24.91 kg/m2 Apr, Heart Rate 64 /min Apr, Respiratory Rate 18 /min Apr, Oximetry 98 Apr, Blood pressure systolic 138 mm Hg Apr, Blood pressure diastolic 64 mm Hg Apr, MEDICATIONS Medication SIG (Take, Route, Frequency, Duration) [...] food Orally Once a day Active PROCEDURES from 1960 to 2020-05-06 Procedure Date Ordered Result Body Site Medication: Lidocaine HCl 2% Jelly 5mL Intravesically 2020-05-01 N/A RESULTS No Results REASON FOR VISIT GROSS HEMATURIA MEDICAL (GENERAL) HISTORY Type Description Date Medical [...] Notes Apr, Kidney stone (ICD-10 - N20.0) Apr, Gross hematuria (ICD-10 - R31.0) PLAN OF TREATMENT Treatment Notes Test Name Order Date CBC - Complete Blood Count 2020-05-06 PT & APTT 2020-05-06 URINE CULTURE 2020-05-06 Basic Metabolic Profile (BMP) 2020-05-06 ADM CHEST 2 VIEW 2020-05-06 Electrocardiogram (EKG) 2020-05-06 Next Appt Details 2 weeks after ESWL Reason: Insurance Providers Payer Name Payer Address Payer Phone Insured Name Patient Relati onship to Insured Coverage Start Date Coverage End Date [facility] [address] [facility] [id number] KATERYNA ROACH self
--- OUTSIDE RECORDS SUMMARY | 2020-06-13 06:42 | CCD ---
Author Author [facility] Organization [facility] Address Unknown Phone Unavailable Care Team Providers Care Jordan Man Name Role Phone Rm, David Unavailable PROBLEMS Type Condition ICD9-CM Code [id number] Code Onset Dates Condition S tatus SNOMED Code Notes Problem Prostate cancer screening Z12.5 Active 834267 002 Problem Gross hematuria R31.0 Active 156656015 Problem Calculus of kidney 592.0 Active 19063489 Problem Kidney stone N20.0 Active 00486817 ALLERGIES Allergen (clinical drug ingredient) Drug/Non Drug Allergy do cumented on EMR Reaction Allergy Type Onset Date Status BEE STINGS Anaphylaxis Non Drug Allergy Active ENCOUNTERS from 1960 to 2020-04-10 Encounter Location Date Provider Diagnosis [facility] Urology [address] [place] [address] Mar David Abdalla IMMUNIZATIONS No Information SOCIAL HISTORY Sex Assigned At : Social History Observation Description Sex Assigned At Unknown Education: Question Answer Notes Level of Education: Finished College Bahai: Question Answer Notes Bahai NONE Sexual Hx: Question Answer Notes Had [...] Information RESULTS No Results REASON FOR VISIT 04/26/2020 appt MEDICAL (GENERAL) HISTORY Type Description Date [...] as directed Mar, Next Appt Details Provider Name:David Day Rm, 02:15:00 PM, [address], [place], [address], Insurance Providers Payer Name Payer Address Payer Phone Insured Name Patient Relati onship to Insured Coverage Start Date Coverage End Date [facility] [address] [facility] [id number] KATERYNA ROACH self
--- OUTSIDE RECORDS SUMMARY | 2020-06-13 06:42 | CCD ---
Author Author [facility] Address Unknown Phone Unavailable Care Team Providers Care Auto Refinisher Name Role Phone Emerson, Alyx DO Unavailable Unavailable Emerson, Alyx DO Unavailable Unavailable Emerson, Alyx DO Unavailable Unavailable Emerson, Alyx DO Unavailable Unavailable Emerson, Alyx DO Unavailable Unavailable Emerson, Alyx DO Unavailable Unavailable Emerson, Alyx DO Unavailable Unavailable Emerson, Alyx DO Unavailable Unavailable Emerson, Alyx DO Unavailable Unavailable Emerson, Alyx DO Unavailable Unavailable Emerson, Alyx DO Unavailable Unavailable Emerson, Alyx DO Unavailable Unavailable Emerson, Alyx DO Unavailable Unavailable Emerson, Alyx DO Unavailable Unavailable Emerson, Alyx DO Unavailable Unavailable Emerson, Alyx DO Unavailable Unavailable Emerson, Alyx DO Unavailable Unavailable Emerson, Alyx DO Unavailable Unavailable Emerson, Alyx DO Unavailable Unavailable Emerson, Alyx DO Unavailable Unavailable Emerson, Alyx DO Unavailable Unavailable Emerson, Alyx DO Unavailable Unavailable Emerson, Alyx DO Unavailable Unavailable Emerson, Alyx DO Unavailable Unavailable Emerson, Alyx DO Unavailable Unavailable Emerson, Alyx DO Unavailable Unavailable Emerson, Alyx DO Unavailable Unavailable Emerson, Alyx DO Unavailable Unavailable Emerson, Alyx DO Unavailable Unavailable Emerson, Alyx DO Unavailable Unavailable Emerson, Alyx DO Unavailable Unavailable Emerson, Alyx DO Unavailable Unavailable Emerson, Alyx DO Unavailable Unavailable Emerson, Alyx DO Unavailable Unavailable Emerson, Alyx DO Unavailable Unavailable Emerson, Alyx DO Unavailable Unavailable Emerson, Alyx DO Unavailable Unavailable Emerson, Alyx DO Unavailable Unavailable Emerson, Alyx DO Unavailable Unavailable Emerson, Alyx DO Unavailable Unavailable Emerson, Alyx DO Unavailable Unavailable Emerson, Alyx DO Unavailable Unavailable Emerson, Alyx DO Unavailable Unavailable Emerson, Alyx DO Unavailable Unavailable Emerson, Alyx DO Unavailable Unavailable Emerson, Alyx DO Unavailable Unavailable Emerson, Alyx DO Unavailable Unavailable Emerson, Alyx DO Unavailable Unavailable Emerson, Alyx DO Unavailable Unavailable Emerson, Alyx DO Unavailable Unavailable Emerson, Alyx DO Unavailable Unavailable Emerson, Alyx DO Unavailable Unavailable Emerson, Alyx DO Unavailable Unavailable Emerson, Alyx DO Unavailable Unavailable Emerson, Alyx DO Unavailable Unavailable Emerson, Alyx DO Unavailable Unavailable Emerson, Alyx DO Unavailable Unavailable Emerson, Alyx DO Unavailable Unavailable Emerosn, Alyx DO Unavailable Unavailable Emerson, Alyx DO Unavailable Unavailable Emerson, Alyx DO Unavailable Unavailable Emerson, Alyx DO Unavailable Unavailable Emerson, Alyx DO Unavailable Unavailable Emerson, Alyx DO Unavailable Unavailable Emerson, Alyx DO Unavailable Unavailable Emerson, Alyx DO Unavailable Unavailable Emerson, Alyx DO Unavailable Unavailable Emerson, Alyx DO Unavailable Unavailable Emerson, Alyx DO Unavailable Unavailable Emerson, Alyx DO Unavailable Unavailable Emerson, Alyx DO Unavailable Unavailable Emerson, Alyx DO Unavailable Unavailable CARLY DOMINGUEZ MD Unavailable Unavailable CARLY DOMINGUEZ MD Unavailable Unavailable CARLY DOMINGUEZ MD Unavailable Unavailable CARLY DOMINGUEZ MD Unavailable Unavailable CARLY DOMINGUEZ MD Unavailable Unavailable CARLY DOMINGUEZ MD Unavailable Unavailable CARLY DOMINGUEZ MD Unavailable Unavailable CARLY DOMINGUEZ MD Unavailable Unavailable CARLY DOMINGUEZ MD Unavailable Unavailable CARLY DOMINGUEZ MD Unavailable Unavailable MARKWITH, CARLY BAÑUELOS Unavailable Unavailable MARKWITH, CARLY BAÑUELOS Unavailable Unavailable MARKWITH, CARLY BAÑUELOS Unavailable Unavailable MARKWITH, CARLY BAÑUELOS Unavailable Unavailable MARKWITH, CARLY BAÑUELOS Unavailable Unavailable MARKWITH, CARLY BAÑUELOS Unavailable Unavailable MARKWITH, CARLY BAÑUELOS Unavailable Unavailable MARKWITH, CARLY BAÑUELOS Unavailable Unavailable MARKWITH, CARLY BAÑUELOS Unavailable Unavailable MARKWITH, CARLY BAÑUELOS Unavailable Unavailable MARKWITH, CARLY BAÑUELOS Unavailable Unavailable MARKWITH, CARLY BAÑUELOS Unavailable Unavailable MARKWITH, CARLY BAÑUELOS Unavailable Unavailable MARKWITH, CARLY BAÑUELOS Unavailable Unavailable MARKWITH, CARLY BAÑUELOS Unavailable Unavailable MARKWITH, CARLY BAÑUELOS Unavailable Unavailable MARKWITH, CARLY BAÑUELOS Unavailable Unavailable MARKWITH, CARLY BAÑUELOS Unavailable Unavailable MARKWITH, CARLY BAÑUELOS Unavailable Unavailable MARKWITH, CARLY BAÑUELOS Unavailable Unavailable MARKWITH, CARLY BAÑUELOS Unavailable Unavailable MARKWITH, CARLY BAÑUELOS Unavailable Unavailable MARKWITH, CARLY BAÑUELOS Unavailable Unavailable LETTIERE, A RICHI PA Unavailable Unavailable LETTIERE, A RICHI PA Unavailable Unavailable LETTIERE, A RICHI PA Unavailable Unavailable LETTIERE, A RICHI PA Unavailable Unavailable LETTIERE, A RICHI PA Unavailable Unavailable LETTIERE, A RICHI PA Unavailable Unavailable LETTIERE, A RICHI PA Unavailable Unavailable LETTIERE, A RICHI PA Unavailable Unavailable LETTIERE, A RICHI PA Unavailable Unavailable LETTIERE, A RICHI PA Unavailable Unavailable LETTIERE, A RICHI PA Unavailable Unavailable LETTIERE, A RICHI PA Unavailable Unavailable LETTIERE, A RICHI PA Unavailable Unavailable LETTIERE, A RICHI PA Unavailable Unavailable LETTIERE, A RICHI PA Unavailable Unavailable LETTIERE, A RICHI PA Unavailable Unavailable LETTIERE, A RICHI PA Unavailable Unavailable LETTIERE, A RICHI PA Unavailable Unavailable LETTIERE, A RICHI PA Unavailable Unavailable LETTIERE, A RICHI PA Unavailable Unavailable LETTIERE, A RICHI PA Unavailable Unavailable LETTIERE, A RICHI PA Unavailable Unavailable LETTIERE, A RICHI PA Unavailable Unavailable LETTIERE, A RICHI PA Unavailable Unavailable LETTIERE, A RICHI PA Unavailable Unavailable LETTIERE, A RICHI PA Unavailable Unavailable LETTIERE, A RICHI PA Unavailable Unavailable LETTIERE, A RICHI PA Unavailable Unavailable LETTIERE, A RICHI PA Unavailable Unavailable Re-disclosure Warning The records that you are about to access may contain information from federally-assisted alcohol or drug abuse programs. If such information is present, then the following federally mandated warning applies: This information has been disclosed to you from records protected by federal confidentiality rules (42 CFR part 2). The federal rules prohibit you from making any further disclosure of this information unless further disclosure is expressly permitted by the written consent of the person to whom it pertains or as otherwise permitted by 42 CFR part 2. A general authorization for the release of medical or other information is NOT sufficient for this purpose. The Federal rules restrict any use of the information to criminally investigate or prosecute any alcohol or drug abuse patient.The records that you are about to access may contain highly sensitive health information, the redisclosure of which is protected by Article 27-F of the [facility] Public Health law. If you continue you may have access to information: Regarding HIV / AIDS; Provided by facilities licensed or operated by the [facility] Office of Mental Health; or Provided by the [facility] Office for People With Developmental Disabilities. If such information is present, then the following [facility] mandated warning applies: This information has been disclosed to you from confidential records which are protected by state law. State law prohibits you from making any further disclosure of this information without the specific written consent of the person to whom it pertains, or as otherwise permitted by law. Any unauthorized further disclosure in violation of state law may result in a fine or longterm sentence or both. A general authorization for the release of medical or other information is NOT sufficient authorization for further disc losure. Family History Family Member Name Family Member Gender Family Member Status Date o f Status Description Data Source(s) Unknown Male Problem MEDENT ([facility]) Unknown Unknown Problem MED[facility] ([facility]) Unknown Unknown Problem [facility] ([facility]) Unknown Unknown Problem [facility] ([facility]) Encounters Encounter Providers Location Date Indications Data Source(s ) Unknown [address] [facility] [id number] 05/09/2020 12:00:00 AM EST eCW1 ([facility]) (Cysto1) Urology [address] [place] [address] 05/01/2020 12:00:00 AM EST eCW1 ([facility]) Unknown [address] [facility] [address] 04/30/2020 12:00:00 AM EST eCW1 ([facility]) [place] [address] [facility] [address] 04/10/2020 12:00:00 AM EST eCW1 ([facility]) [place] [address] [facility] [address] 03/26/2020 12:00:00 AM EST eCW1 ([facility]) [place] [address] [facility] [address] 03/20/2020 12:00:00 AM EST eCW1 ([facility]) Outpatient Attender: Alyx Rodriguez 11/09 08:40:00 AM EDT MED[facility] ([facility] ) Outpatient Attender: CARLY DOMINGUEZ MD Physical Therapy 10:00:00 AM EST MEDENT ([facility]) Outpatient Attender: CARLY DOMINGUEZ MD Physical Therapy 12:00:00 PM EST MEDENT ([facility]) Outpatient Attender: RICHI Gilmore Prim anita 04/21/2019 04:00:00 PM EST MEDENT ([facility]) Immunizations Vaccine Date Status Description Data Source(s) INFLUENZA VIRUS VACCINE QUADRIVALENT (6 MOS AN D UP) 01/18/2020 12:00:00 AM EDT completed [facility] Medications Medication Brand Name Start Date Product Form Dose Route Admi nistrative Instructions Pharmacy Instructions Status Indications Reaction Description Data Source(s) 10 mg 05/09/2020 12:00:00 AM EST tablet 90 TAKE ONE TABLET BY MOUTH EVERY DAY TAKE ONE TABLET BY MOUTH EVERY DAY SOLD: 05/14/2020 [facility] Cephalexin 500 MG Oral Capsule [Keflex] Keflex 500 MG Keflex 500 MG 03/26/2020 12:00:00 AM EST active Keflex 5 00 MG [facility] Cephalexin 500 MG Oral Capsule [Keflex] Keflex 500 MG Keflex 500 MG 03/26/2020 12:00:00 AM EST active Keflex 5 00 MG eCW1 [facility]) Cephalexin 500 MG Oral Capsule [Keflex] Keflex 500 MG Keflex 500 MG 03/26/2020 12:00:00 AM EST active Keflex 5 00 MG eCW1 [facility]) Cephalexin 500 MG Oral Capsule CEPHALEXIN 03/26/2020 12:00:00 AM EST capsule 1 TAKE ONE CAPSULE BY MOUTH ONE HOUR BEFORE CYSTOSCOPY A S DIRECTED TAKE ONE CAPSULE BY MOUTH ONE HOUR BEFORE CYSTOSCOPY DIRECTED SOLD: 03/27/2020 [facility] Cephalexin 500 MG Oral Capsule [Keflex] Keflex 500 MG Keflex 500 MG 03/26/2020 12:00:00 AM EST active Keflex 5 00 MG eCW1 [facility]) Cephalexin 500 MG Oral Capsule [Keflex] Keflex 500 MG Keflex 500 MG 03/26/2020 12:00:00 AM EST active Keflex 5 00 MG eCW1 [facility]) 80 mg 02/07/2020 12:00:00 AM EDT tablet 90 TAKE ONE TABLET BY MOUTH AT BEDTIME TAKE ONE TABLET BY MOUTH AT BEDTIME SOLD: 02/13/2020 [facility] 80 mg 02/07/2020 12:00:00 AM EDT tablet 90 TAKE ONE TABLET BY MOUTH AT BEDTIME TAKE ONE TABLET BY MOUTH AT BEDTIME SOLD: 05/14/2020 [facility] montelukast 10 MG Oral Tablet MONTELUKAST SODIUM 11/11/2019 12:0 0:00 AM EDT tablet 90 TAKE ONE TABLET BY MOUTH AT BEDT CK TAKE ONE TABLET BY MOUTH AT BEDTIME SOLD: 02/13/2020 [facility] montelukast 10 MG Oral Tablet MONTELUKAST SODIUM 11/11/2019 12:0 0:00 AM EDT tablet 90 TAKE ONE TABLET BY MOUTH AT BEDT CK TAKE ONE TABLET BY MOUTH AT BEDTIME SOLD: 05/14/2020 [facility] montelukast 10 MG Oral Tablet MONTELUKAST SODIUM 11/11/2019 12:0 0:00 AM EDT tablet 90 TAKE ONE TABLET BY MOUTH AT BEDT CK TAKE ONE TABLET BY MOUTH AT BEDTIME SOLD: 11/13/2019 [facility] [id number] 0.3 ML Epinephrine 1 MG/ML Auto-Injector EPINEPHRI NE 08/15/2019 12:00:00 AM EDT auto-injector 2 DIRECTED DIRECTED SOLD: 07/20 [facility] 10 mg 05/16/2019 12:00:00 AM EST tablet 90 TAKE ONE TABLET BY MOUTH EVERY DAY TAKE ONE TABLET BY MOUTH EVERY DAY SOLD: 05/19/2019 [facility] 10 mg 05/16/2019 12:00:00 AM EST tablet 90 TAKE ONE TABLET BY MOUTH EVERY DAY TAKE ONE TABLET BY MOUTH EVERY DAY SOLD: 11/13/2019 [facility] 10 mg 05/16/2019 12:00:00 AM EST tablet 90 TAKE ONE TABLET BY MOUTH EVERY DAY TAKE ONE TABLET BY MOUTH EVERY DAY SOLD: 08/17/2019 [facility] 10 mg 05/16/2019 12:00:00 AM EST tablet 90 TAKE ONE TABLET BY MOUTH EVERY DAY TAKE ONE TABLET BY MOUTH EVERY DAY SOLD: 02/13/2020 [facility] 80 mg 11/15/2018 12:00:00 AM EDT tablet 90 TAKE ONE TABLET BY MOUTH AT BEDTIME TAKE ONE TABLET BY MOUTH AT BEDTIME SOLD: 05/19/2019 [facility] 80 mg 11/15/2018 12:00:00 AM EDT tablet 90 TAKE ONE TABLET BY MOUTH AT BEDTIME TAKE ONE TABLET BY MOUTH AT BEDTIME SOLD: 11/13/2019 [facility] 80 mg 11/15/2018 12:00:00 AM EDT tablet 90 TAKE ONE TABLET BY MOUTH AT BEDTIME TAKE ONE TABLET BY MOUTH AT BEDTIME SOLD: 08/17/2019 [facility] montelukast 10 MG Oral Tablet MONTELUKAST SODIUM 08/16/2018 12:0 0:00 AM EDT tablet 90 TAKE ONE TABLET BY MOUTH AT BEDT CK TAKE ONE TABLET BY MOUTH AT BEDTIME SOLD: 05/19/2019 [facility] montelukast 10 MG Oral Tablet MONTELUKAST SODIUM 08/16/2018 12:0 0:00 AM EDT tablet 90 TAKE ONE TABLET BY MOUTH AT BEDT CK TAKE ONE TABLET BY MOUTH AT BEDTIME SOLD: 08/17/2019 [facility] Insurance Providers Payer name Policy type / Coverage type Policy ID Covered alliance party ID Covered alliance party's relationship to antonio Policy Antonio Plan Information [facility] DIV [id number] SP [id number] [facility] [id number] SP [id number] [facility] [id number] SP [id number] [facility] DIV [id number] SP [id number] [facility] [id number] SP [id number] [employer] [id number] SP [id number] [employer] DIV [id number] SP [id number] ANSI-Commercial [id number] ANSI-Commercial [id number] ANSI-Commercial [id number] ANSI-Commercial [id number] ANSI-Commercial [id number] ANSI-Commercial [id number] [facility] [place] Commercial [id number] Self [id number] ANSI-Commercial [id number] ANSI-Commercial [id number] [facility] [place] Commercial [id number] Self [id number] [employer] DIV [id number] SP [id number] [place] [employer] (O) [id number] Self [id number] [place] [facility] Health Maintenance Organization (HMO) [id number] Self [id number] [facility] [place] Commercial [id number] Self [id number] [facility] [place] Commercial [id number] Self [id number] [facility] [place] Commercial Self [facility] [place] Commercial Self [employer] PL[employer] [facility] [place] [id number] Self [id number] [employer] CHOICE O [id number] S [id number] [facility] EMPIRE PLAN O [id number] S [id number] Problems, Conditions, and Diagnoses Code Display Name Description Problem Type Effective Dates Data Source(s) R31.0 Gross hematuria Gross hematuria Problem 03/26/2020 12:0 0:00 AM EST [facility] Surgeries/Procedures Procedure Description Date Indications Data Source(s) Medication: Lidocaine HCl 2% Jelly 5mL Intravesically 05/01/2020 12:00:00 AM EST eCW1 ([facility]) THERAPEUTIC PX 1/> AREAS EACH 15 MIN EXERCISES 12:00:00 AM EDT MEDENT ([facility]) THERAPEUTIC PX 1/> AREAS EACH 15 MIN EXERCISES 12:00:00 AM EDT MEDENT ([facility] THERAPEUTIC PX 1/> AREAS EACH 15 MIN EXERCISES 12:00:00 AM EDT MEDENT ([facility] ) THERAPEUTIC PX 1/> AREAS EACH 15 MIN EXERCISES 12:00:00 AM EDT MED[facility] ([facility] ) APPLICATION MODALITY 1/> AREAS HOT/COLD PACKS 06/30/19 12:00:00 AM EDT MED[facility] ([facility] ) THERAPEUTIC PX 1/> AREAS EACH 15 MIN EXERCISES 12:00:00 AM EDT MEDENT ([facility] ) THERAPEUTIC PX 1/> AREAS EACH 15 MIN EXERCISES 12:00:00 AM EDT MEDENT ([facility] ) THERAPEUTIC PX 1/> AREAS EACH 15 MIN EXERCISES 12:00:00 AM EDT MEDENT ([facility] ) THERAPEUTIC PX 1/> AREAS EACH 15 MIN EXERCISES 12:00:00 AM EDT MEDENT ([facility] ) THERAPEUTIC PX 1/> AREAS EACH 15 MIN EXERCISES 12:00:00 AM EDT MEDENT ([facility] ) THERAPEUTIC PX 1/> AREAS EACH 15 MIN EXERCISES 12:00:00 AM EST MEDENT ([facility]) ARTHROCENTESIS ASPIR&/INJECTION MAJOR JT/BURSA 12:00:00 AM EST MEDENT ([facility]) RADIOLOGIC EXAMINATION KNEE 1/2 VIEWS 06/22/2019 12:00 :00 AM EST MEDENT ([facility]) THERAPEUTIC PX 1/> AREAS EACH 15 MIN EXERCISES 12:00:00 AM EST MEDENT ([facility] ) THERAPEUTIC PX 1/> AREAS EACH 15 MIN EXERCISES 12:00:00 AM EST MEDENT ([facility] ) APPLICATION MODALITY 1/> AREAS HOT/COLD PACKS 06/13/19 12:00:00 AM EST MEDENT ([facility] ) THERAPEUTIC PX 1/> AREAS EACH 15 MIN EXERCISES 12:00:00 AM EST MEDENT ([facility] ) THERAPEUTIC PX 1/> AREAS EACH 15 MIN EXERCISES 12:00:00 AM EST MEDENT ([facility]) Physical Therapy Eval - Low Complexity 06/09/2019 12:0 0:00 AM EST MEDENT ([facility]) FX Tibia Proximal W/O Manipulation 05/16/2019 12:00:00 AM EST MEDENT ([facility]) MRI Lower Extremity Any Joint 05/12/2019 12:00:[address] [facility] ([facility]) Results ID Date Data Source [id number] 06/08/2020 09:00:00 AM EST [facility] Name Value Range Interpretation Code Description Data Nya rce(s) Supporting Document(s) SARS coronavirus 2 RNA Not Detected [facility] [place] This lab was ordered by [facility] and reported by [facility]. ID Date Data Source [id number] 05/15/2020 09:11:00 AM EST MEDENT ([facility]) Name Value Range Interpretation Code Description Data Nya rce(s) Supporting Document(s) Bacteria identified in Urine by Culture Laboratory test result [facility] ([facility]) FULL REPORT IN LAB NOTES (eCW and [facility] ). NO GROWTH ID Date Data Source [id number] 05/15/2020 09:11:00 AM EST MEDENT ([facility]) Name Value Range Interpretation Code Description Data Nya rce(s) Supporting Document(s) Prothrombin Time 19.4 s 12.5-14.3 [facility] ([facility]) Inr 1.60 [facility] ([facility]) THERAPUTIC HUMAN INR VALUES INDICATIONS NORMAL RANGES PROPHYLAXIS/TREATMENT OF: VENOUS THROMBOSIS 2.0-3.0 PULMONARY EMBOLISM 2.0-3.0 PREVENTION OF SYSTEMIC EMBOLISM FROM: TISSUE HEART VALVES 2.0-3.0 ACUTE MYOCARDIAL INFARCTION 2.0-3.0 VALVULAR HEART DISEASE 2.0-3.0 ATRIAL FIBRILLATION 2.0-3.0 MECHANICAL VALVES(HIGH RISK) 2.5-3.5 RECURRENT MYOCARDIAL INFARCTION 2.5-3.5 Partial Thromboplastin Time 31.4 s 24.2-38.5 [facility] [facility] ([facility]) ID Date Data Source [id number] 05/15/2020 09:09:00 AM EST MEDENT ([facility]) Name Value Range Interpretation Code Description Data Nya rce(s) Supporting Document(s) Glucose [Mass/volume] in Serum or Plasma 96 mg/dL 74-99 [facility] ([facility]) 100-125 mg/dL PRE-DIABETES/FASTING >126 mg/dL DIABETES/FASTING Creatinine 1.2 mg/dL 0.6-1.3 [facility] ([facility]) Sodium [Moles/volume] in Serum or Plasma 142 meq/L 136-145 [facility] ([facility]) Urea nitrogen [Mass/volume] in Serum or Plasma 20 mg/dL 7-18 [facility] ([facility]) Potassium [Moles/volume] in Serum or Plasma 4.6 meq/L 3.5-5.1 [facility] ([facility]) Chloride [Moles/volume] in Serum or Plasma 104 meq/L 98-107 [facility] ([facility]) Carbon dioxide, total [Moles/volume] in Serum or Plasma 32 meq/L 21 -32 [facility] Glomerular filtration rate/1.73 sq M pre dicted among non-blacks [Volume Rate/Area] in Serum or Plasma by Creatinine-based formula (MDRD) Laboratory test result [facility] Glomerular filtration rate/1.73 sq M pre dicted among blacks [Volume Rate/Area] in Serum or Plasma by Creatinine-based formula (MDRD) Laboratory test result [facility] <content>CHRONIC KIDNEY DISEASE STAGING PER NKF</content>
<content></content>
<content>STAGE I & II GFR >= 60 NORMAL TO MILDLY DECREASED</content>
<content>STAGE III GFR 30-59 MODERATELY DECREASED</content>
<content>STAGE IV GFR 15-29 SEVERELY DECREASED</content>
<content>STAGE V GFR <15 VERY LITTLE GFR LEFT</content>
<content>ESRD GFR <15 ON JEWEL SUPERVISOR</content>
<content></content> Calcium [Mass/volume] in Serum or Plasma 9.1 mg/dL 8.5-10.1 [facility] ([facility]) ID Date Data Source [id number] 05/15/2020 09:09:00 AM EST [facility] ([facility]) Name Value Range Interpretation Code Description Data Nya rce(s) Supporting Document(s) Leukocytes [#/volume] in Blood by Automated count 3.8 x10*3/UL 4.1-10 .9 [facility] ([facility]) Hemoglobin [Mass/volume] in Blood 14.8 g/dL 12.0-18.0 [facility] ([facility]) Hematocrit [Volume Fraction] of Blood by Automated count 42.8 % 3 7.0-51.0 [facility] ([facility]) Erythrocytes [#/volume] in Blood by Automated count 4.41 x10*6/UL 4.2 0-6.30 [facility] ([facility]) MCV 96.9 fL 80.0-97.0 [facility]) MCHC 34.7 g/dL 31.0-38.0 [facility] ([facility]) MCH 33.6 pg 26.0-32.0 [facility]) Erythrocyte distribution width [Ratio] by Automated count 12.5 % 11.6-13.7 [facility] ([facility]) Platelets [#/volume] in Blood by Automated count 159 x10*3/UL 140-440 [facility] ([facility]) MPV 9.4 FL 7.8-11.0 [facility]) Neut % 58.9 % 37.0-92.0 [facility]) Mid % 6.8 % 1.7-9.3 [facility] Lymph % 34.3 % 10.0-58.5 [facility] Mid # 0.3 x10*3/UL 0.1-0.6 [facility] ([facility]) Lymph # 1.3 x10*3/UL 0.6-4.1 [facility] ([facility]) Neut # 2.2 x10*3/UL 2.0-7.8 [facility] ([facility]) ID Date Data Source PSA SCREENING 03/28/2020 12:00:00 AM EST eCW1 ([facility]) Name Value Range Interpretation Code Description Data Nya rce(s) Supporting Document(s) 1.50 < 4.00 PSA SCREENING [facility] ID Date Data Source Basic Metabolic Profile (BMP) 03/28/2020 12:00:00 AM EST eCW 1 ([facility]) Name Value Range Interpretation Code Description Data Nya rce(s) Supporting Document(s) 17 7-18 BLOOD UREA NITROGEN eCW1 ([facility]) 1.13 0.70-1.30 CREATININE FOR GFR eCW1 ([facility]) 92 70-100 GLUCOSE, FASTING eCW1 ([facility]) 108 98-107 CHLORIDE LEVEL W1 ([facility]) 4.3 3.5-5.1 POTASSIUM SERUM eCW1 ([facility], 1928[facility]) 142 136-145 SODIUM LEVEL eCW1 ([facility]) > 60.0 >49 GLOMERULAR FILTRATION RATE eCW 1 ([facility]) 28 21-32 CARBON DIOXIDE LEVEL eCW1 ([facility]) 9.4 8.8-10.2 CALCIUM LEVEL eCW1 ([facility]) ID Date Data Source URINE CULTURE 03/26/2020 12:00:00 AM EST eCW1 ([facility]) Name Value Range Interpretation Code Description Data Nya rce(s) Supporting Document(s) URINE CULTURE eCW1 ([facility]) ID Date Data Source UA URINALYSIS 03/26/2020 12:00:00 AM EST eCW1 ([facility]) Name Value Range Interpretation Code Description Data Nya rce(s) Supporting Document(s) UA URINALYSIS eCW1 ([facility]) ID Date Data Source [id number] 11/10/2019 08:55:00 AM EDT MEDENT ([facility]) Name Value Range Interpretation Code Description Data Nya rce(s) Supporting Document(s) Triglyceride [Mass/volume] in Serum or Plasma 81 mg/dL 30-150 [facility] ([facility]) Cholesterol [Mass/volume] in Serum or Plasma 182 mg/dL 131-200 [facility] ([facility]) Cholesterol in LDL [Mass/volume] in Serum or Plasma by calcu lation 101 CALC 50-159 [facility] ([facility]) Cholesterol in HDL [Mass/volume] in Serum or Plasma 65 mg/dL 35-60 [facility] ([facility]) ID Date Data Source [id number] 11/10/2019 08:55:00 AM EDT [facility] ([facility]) Name Value Range Interpretation Code Description Data Nya rce(s) Supporting Document(s) Glucose [Mass/volume] in Serum or Plasma 91 mg/dL 74-99 [facility] ([facility]) 100-125 mg/dL PRE-DIABETES/FASTING >126 mg/dL DIABETES/FASTING Urea nitrogen [Mass/volume] in Serum or Plasma 17 mg/dL 7-18 [facility] ([facility]) Creatinine 1.2 mg/dL 0.6-1.3 [facility] ([facility]) Chloride [Moles/volume] in Serum or Plasma 108 meq/L 98-107 [facility] ([facility]) Potassium [Moles/volume] in Serum or Plasma 4.3 meq/L 3.5-5.1 [facility] ([facility]) Carbon dioxide, total [Moles/volume] in Serum or Plasma 29 meq/L 21 -32 [facility] ([facility]) Sodium [Moles/volume] in Serum or Plasma 146 meq/L 136-145 [facility] ([facility]) Total Bilirubin 1.1 mg/dL 0.2-1.0 [facility] ([facility]) Alkaline phosphatase isoenzyme [Units/volume] in Serum or Pl asma 72 mg/dL 46-116 [facility] ([facility]) Calcium [Mass/volume] in Serum or Plasma 9.3 mg/dL 8.5-10.1 [facility] ([facility]) Alanine aminotransferase [Enzymatic activity/volume] in Seru m or Plasma 54 U/L 12-78 [facility] ([facility]) Aspartate aminotransferase [Enzymatic activity/volume] in Serum or Plasma 33 U/L 15-37 [facility] Proteinase 3 Ab [Units/volume] in Serum 7.1 g/dL 6.4-8.2 [facility] ([facility]) Albumin [Mass/volume] in Serum or Plasma 4.4 g/dL 3.4-5.0 [facility] ([facility]) Glomerular filtration rate/1.73 sq M pre dicted among blacks [Volume Rate/Area] in Serum or Plasma by Creatinine-based formula (MDRD) Laboratory test result [facility] <content>CHRONIC KIDNEY DISEASE STAGING PER NKF</content>
<content></content>
<content>STAGE I & II GFR >= 60 NORMAL TO MILDLY DECREASED</content>
<content>STAGE III GFR 30-59 MODERATELY DECREASED</content>
<content>STAGE IV GFR 15-29 SEVERELY DECREASED</content>
<content>STAGE V GFR <15 VERY LITTLE GFR LEFT</content>
<content>ESRD GFR <15 ON JEWEL SUPERVISOR</content>
<content></content> A/G Ratio 1.63 CALC 1.00-1.90 [facility] ([facility] Glomerular filtration rate/1.73 sq M pre dicted among non-blacks [Volume Rate/Area] in Serum or Plasma by Creatinine-based formula (MDRD) Laboratory test result [facility] ([facility] ) ID Date Data Source [id number] 11/10/2019 08:55:00 AM EDT [facility] Name Value Range Interpretation Code Description Data Nya rce(s) Supporting Document(s) Erythrocytes [#/volume] in Blood by Automated count 4.83 x10*6/UL 4.2 0-6.30 [facility] ([facility] Hemoglobin [Mass/volume] in Blood 15.9 g/dL 12.0-18.0 [facility] Leukocytes [#/volume] in Blood by Automated count 4.9 x10*3/UL 4.1-10 .9 [facility] ([facility] Hematocrit [Volume Fraction] of Blood by Automated count 46.5 % 3 7.0-51.0 [facility] ([facility] MCH 32.9 pg 26.0-32.0 [facility] ([facility] MCV 96.1 fL 80.0-97.0 [facility] ([facility]) MPV 8.5 FL 7.8-11.0 [facility] ([facility]) Platelets [#/volume] in Blood by Automated count 179 x10*3/UL 140-440 [facility] MCHC 34.2 g/dL 31.0-38.0 [facility] ([facility]) Erythrocyte distribution width [Ratio] by Automated count 12.4 % 11.6-13.7 [facility] ([facility]) Lymph % 29.7 % 10.0-58.5 [facility]) Mid % 8.2 % 1.7-9.3 [facility]) Neut % 62.1 % 37.0-92.0 [facility]) Neut # 3.0 x10*3/UL 2.0-7.8 [facility] ([facility]) Mid # 0.5 x10*3/UL 0.1-0.6 [facility] ([facility]) Lymph # 1.4 x10*3/UL 0.6-4.1 [facility] ([facility]) Procedure Vital Signs ID Date Data Source UNK Name Value Range Interpretation Code Description Data Source(s) Body mass index (BMI) [Ratio] 25.1 kg/m2 25.1 k g/m2 [facility] ([facility]) Oxygen saturation in Arterial blood by Pulse oximetry 97 % 97 % [facility] ([facility]) RM Air Body weight 190.00 [lb_av] 190.00 [lb_av] MEDEN T ([facility]) Body height 73 [in_i] 73 [in_i] [facility] ([facility]) 6'1" Heart rate 54 /min 54 /min [facility] ([facility]) Diastolic blood pressure 80 mm[Hg] 80 mm[Hg] [facility] ([facility]) Systolic blood pressure 120 mm[Hg] 120 mm[Hg] M EDENT ([facility]) Diastolic blood pressure 64 mm[Hg] 64 mm[Hg] eCW1 [facility] Systolic blood pressure 138 mm[Hg] 138 mm[Hg] e CW1 ([facility]) Respiratory rate 18 /min 18 /min eCW1 ([facility]) Heart rate 64 /min 64 /min eCW1 ([facility], 1928[facility]) Body mass index (BMI) [Ratio] 24.91 kg/m2 24.91 kg/m2 W1 ([facility]) Body height 73 [in_i] 73 [in_i] eCW1 ([facility]) Body weight 188.8 [lb_av] 188.8 [lb_av] eCW1 ([facility]) Diastolic blood pressure 95 mm[Hg] 95 mm[Hg] eCW1 ([facility]) Systolic blood pressure 149 mm[Hg] 149 mm[Hg] e CW1 ([facility]) Body temperature 97.4 [degF] 97.4 [degF] eCW1 ( [facility]) Respiratory rate 18 /min 18 /min eCW1 ([facility]) Heart rate 58 /min 58 /min eCW1 ([facility]) Body mass index (BMI) [Ratio] 25.35 kg/m2 25.35 kg/m2 eCW1 ([facility]) Body height 73 [in_i] 73 [in_i] eCW1 ([facility]) Body weight 192.2 [lb_av] 192.2 [lb_av] eCW1 ([facility]) Body mass index (BMI) [Ratio] 24.4 kg/m2 24.4 k g/m2 [facility] ([facility]) Body weight 185.12 [lb_av] 185.12 [lb_av] MEDEN T ([facility]) Body height 73 [in_i] 73 [in_i] [facility] ([facility]) 6'1" Heart rate 56 /min 56 /min [facility] ([facility]) Diastolic blood pressure 80 mm[Hg] 80 mm[Hg] [facility] ([facility]) RT Arm Systolic blood pressure 120 mm[Hg] 120 mm[Hg] M EDENT ([facility]) RT Arm Body weight 195.12 [lb_av] 195.12 [lb_av] MEDEN T ([facility]) Body height 72.75 [in_i] 72.75 [in_i] MED[facility] ([facility]) 6'0.75" Body temperature 97.6 [degF] 97.6 [degF] MED[facility] ([facility]) Body mass index (BMI) [Ratio] 25.9 kg/m2 25.9 k g/m2 [facility] ([facility]) Body mass index (BMI) [Ratio] 24.4 kg/m2 24.4 k g/m2 [facility] ([facility]) Body height 73 [in_i] 73 [in_i] MED[facility] ([facility] 6'1" Body weight 185.00 [lb_av] 185.00 [lb_av] MEDEN T ([facility] Body temperature 98.7 [degF] 98.7 [degF] [facility] ([facility]) Oxygen saturation in Arterial blood by Pulse oximetry 98 % 98 % [facility] ([facility]) Respiratory rate 16 /min 16 /min MED[facility] ( [facility] Heart rate 76 /min 76 /min [facility] ([facility] Diastolic blood pressure 102 mm[Hg] 102 mm[Hg] MED[facility] ([facility] Systolic blood pressure 159 mm[Hg] 159 mm[Hg] M EDENT ([facility], [facility] Patient Treatment Plan of Care Planned Activity Planned Date Details Description Data Source (s) Cephalexin 500 MG Oral Capsule [Keflex] 03/26/2020 12:00:00 AM EST eCW1 [facility] Cephalexin 500 MG Oral Capsule [Keflex] 03/26/2020 12:00:00 AM EST eCW1 ([facility]) Cephalexin 500 MG Oral Capsule [Keflex] 03/26/2020 12:00:00 AM EST eCW1 ([facility])
--- OUTSIDE RECORDS SUMMARY | 2020-06-13 06:42 | CCD | Continuity of Care Document ---
Author Author Hernán TRUJILLO Organization Unknown Address [address] [place] [id number] Phone [phone] Care Team Providers Care Meteorological Aide Name Role Phone Alyx TrujilloM Unavailable Juliocesar Anderson M.D. Unavailable Problems Active Problems Provider Date Therapeutic drug monitoring assay Prabha Saeed ELECTRICAL TEST TECHNICIAN Onset: 12/29/2010 Deep venous thrombosis of lower extremity Prabha Saeed ELECTRICAL TEST TECHNICIAN Onset: 01/09/2011 Postthrombotic syndrome Prabha Saeed ELECTRICAL TEST TECHNICIAN Onset: 1 Social History Type Date Description [...] Glucosamine Chondroitin Tablets 2 po qd Alyx Trujillo DO 02/12/2012 Pravastatin Sodium 80mg Tablets Take One Tablet By Mouth AT Bedtime 90tabs Alyx Trujillo DO 05/17 Medications Administered in Office Medication SIG Qnty Indications Ordering Provider Date Immunization Adminstration,1 Vaccine/Tox oid Injection Alyx Trujillo DO 01/14/2018 Immunizations CPT Code Status Date Vaccine Lot # U-Flu Given 01/21/2019 Influenza,Unspecified [id number] Given 01/14/2018 Influenza Virus Vaccine, Quadrivalent ([id number]), Derived From 5 Given 08/22/2013 Zoster Vaccine [id number] Given 01/13/2012 Fluvirin Virus Vaccine [id number] Given 02/04/2011 Fluvirin Virus Vaccine [id number] Given 03/18/2010 Influenza Virus Vaccine Vital Signs [...] Date Facility Test Result H/L Range Note Laboratory test finding 05/15/[address] [address] [phone] Urine Culture <pending> Procedures Date Code Description Status 06/17/2012 [id number] Colonoscopy Completed 05/30/2010 [id number] Colonoscopy Completed Medical Devices Description No Information Available Encounters Description No Information Available Assessments Description No Information Available Plan of Treatment 11/10/2019 - Alyx Trujillo DO* I82.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
[2020-06-13] MEDS ORDERED: propofoL 200 MG/20 ML VIAL As Ordered ONE (07:05)
[2020-06-13] MEDS ORDERED: LIDOCAINE 2% 100MG/5ML SDV (FOR ANES.) As Ordered ONE (07:05)
[2020-06-13] MEDS ORDERED: MIDAZOLAM INJ 2MG/2ML VIAL (J2250 PER 1MG) As Ordered ONE (07:05)
[2020-06-13] MEDS ORDERED: fentaNYL 100 MCG/2 ML INJECTION (J3010) As Ordered ONE (07:06)
[2020-06-13] MEDS ORDERED: OXYC1TAB23 PO (08:30)
[2020-06-13] MEDS ORDERED: FLOM0.4C39 PO (08:30)
--- NOTE | 2020-06-13 08:36 | REP ---
INDICATION: KIDNEY STONE- KUB PRIOR TO SDC. COMPARISON: Comparison KUB study July 22, 2011. More recent comparison study March 21, 2019.. TECHNIQUE: Single supine film of the abdomen, KUB. FINDINGS: Bowel gas pattern is unremarkable. Bowel gas overlies the kidneys, particularly on the right. There is a 3 mm calcification projecting at the upper pole the right kidney. An irregular 7 mm calcification projects over the upper pole of the left kidney. These were present on the 03/21/2019 radiograph. Vascular calcification is noted in the pelvis. There is a phlebolith in the pelvis. Psoas margins and flank stripes are intact. No mass or organomegaly. IMPRESSION: Findings consistent with bilateral intrarenal nephrolithiasis. <Electronically signed by Israel Nieto > 06/13/20 0758
[2020-06-13] MEDS ORDERED: ePHEDrine SULFATE 25 MG/5 ML(5MG/ML) SYRINGE As Ordered ONE (08:49)
[2020-06-13 09:50] VITALS: BP 136/80
--- NOTE | 2020-06-13 12:54 | RO ---
OPERATIVE NOTE DATE OF OPERATION: 06/13/2020 PREOPERATIVE DIAGNOSIS: Right kidney stone. POSTOPERATIVE DIAGNOSIS: Right kidney stone. PROCEDURE: Right extracorporeal shock wave lithotripsy SURGEON: David Abdalla MD EXPLOSIVE ORDNANCE SPECIALIST: ANESTHESIA: MAC. OPERATIVE INDICATIONS: This 60-year-old male was found to have bilateral non-obstructing kidney stones with an approximately 4-5 mm stone on the right side. He is brought to the operating room today to treat the right side first. DESCRIPTION OF PROCEDURE: The patient was brought to the operating room and MAC anesthesia was administered. Prophylactic antibiotics were infused. Fluoroscopy and ultrasonography were utilized to monitor stone position and fragmentation throughout the procedure. Shockwaves were then delivered to the right-sided kidney stone ungated. There were no arrhythmias. After 2500 shocks the procedure was concluded. The stone did appear to fragment well. The patient was awakened from anesthesia and transported to recovery room in stable condition. ESTIMATED BLOOD LOSS: Zero mL. COMPLICATIONS: None. SPECIMEN: None. PLAN: The patient will follow up in urology clinic in a few weeks for postoperative visit with imaging prior to assess for residual stone burden. At that point we can discuss getting him up set for extracorporeal shock wave lithotripsy on left side for left-sided kidney stone.
== END 2020-06-13 10:16 | disposition home or self-care (01) ==
LOC: M SDC 06:36
PROVIDERS: ATTEND Urology
DX: N20.0 Calculus of kidney (principal); E78.00 Pure hypercholesterolemia, unspecified; Z79.01 Long term (current) use of anticoagulants; Z79.899 Other long term (current) drug therapy; Z86.718 Personal history of other venous thrombosis and embolism; Z87.81 Personal history of (healed) traumatic fracture; Z91.030 Bee allergy status
CPT/HCPCS: 50590; 74018; J0690; J2250; J3010

== ENCOUNTER → 2020-06-28 | Outpatient (CLI) | payer BC, OTHER ==
[~2020-06-28] MED LIST changes: -LIDOCAINE 1% MDV 20ML VIAL SQ PRN; -LR 1,000 ML IV ONE; +OXYC1TAB23 PO; -ceFAZolin SOD 2 GM in IV 1 EA IV ONE
--- NOTE | 2020-06-28 11:37 | REP ---
INDICATION: KIDNEY STONE COMPARISON: 06/13/2020 TECHNIQUE: Supine views of the abdomen and pelvis. FINDINGS: Evaluation is limited by overlying bowel gas. However, few left intrarenal calculi are again suspected along with possible 3 mm right renal calculus. Bowel gas pattern is nonspecific. No organomegaly. Skeletal structures intact. No foreign body. IMPRESSION: Findings suggest bilateral nephrolithiasis <Electronically signed by Satish Martínez > 06/28/20 [id number]
== END ==
LOC: M ADAMS 10:48
PROVIDERS: ATTEND Urology
DX: N20.0 Calculus of kidney (principal)

== ENCOUNTER → 2020-07-10 | Outpatient (REF) | payer OTHER ==
[2020-07-10 12:46] LABS: HEMATOCRIT 46.1 % (42.0-52.0); HEMOGLOBIN 15.8 g/dl (13.5-17.5); MEAN CORPUSCULAR HEMOGLOBIN 34.2 pg (27.0-33.0); MEAN CORPUSCULAR HGB CONC 34.3 g/dl (32.0-36.5); MEAN CORPUSCULAR VOLUME 99.8 fl (80.0-96.0); PLATELET COUNT, AUTOMATED 163 10^3/uL (150-450); RED BLOOD COUNT 4.62 10^6/uL (4.30-6.10); WHITE BLOOD COUNT 4.5 10^3/uL (4.0-10.0)
[2020-07-10 12:57] LABS: INR 1.05; PARTIAL THROMBOPLASTIN TIME 25.6 SECONDS (24.2-38.5); PROTHROMBIN TIME 13.9 SECONDS (12.5-14.3)
[2020-07-10 13:22] LABS: BLOOD UREA NITROGEN 16 MG/DL (7-18); CALCIUM LEVEL 9.4 MG/DL (8.8-10.2); CARBON DIOXIDE LEVEL 28 MEQ/L (21-32); CHLORIDE LEVEL 105 MEQ/L (98-107); CREATININE FOR GFR 1.19 MG/DL (0.70-1.30); GLOMERULAR FILTRATION RATE > 60.0 (>49); GLUCOSE, FASTING 93 MG/DL (70-100); POTASSIUM SERUM 4.3 MEQ/L (3.5-5.1); SODIUM LEVEL 140 MEQ/L (136-145)
== END ==
LOC: M LABSMT 11:03 → M SFHCADAM 11:08
PROVIDERS: ATTEND Nurse Practitioner Family
DX: N20.0 Calculus of kidney (principal); Z01.818 Encounter for other preprocedural examination

== ENCOUNTER → 2020-07-10 | Outpatient (CLI) | payer BC, OTHER ==
--- NOTE | 2020-07-10 14:04 | REP ---
INDICATION: KIDNEY STONES. COMPARISON: 06/28/2020. TECHNIQUE: AP view abdomen and pelvis. FINDINGS: Bowel gas pattern is normal with no dilated bowel loops identified. There is again a tiny subcentimeter calcific density overlying the superior right renal shadow. A cluster of subcentimeter calcifications are again seen overlying the superior left renal shadow. Vascular calcifications are seen in the pelvis. There is a subcentimeter phleboliths in the left pelvis. IMPRESSION: No change since prior study. <Electronically signed by Kirill Adams > 07/10/20 1400
== END ==
LOC: M ADAMS 11:03
PROVIDERS: ATTEND Nurse Practitioner Family
DX: N20.0 Calculus of kidney (principal)

== ENCOUNTER → 2020-07-20 | Outpatient (CLI) | payer BC, OTHER | LOC: M LABSMTC 10:44 | PROVIDERS: ATTEND Anesthesiology | DX: Z01.812 Encounter for preprocedural laboratory examination (principal); Z20.822 Contact with and (suspected) exposure to COVID-19 ==

== ENCOUNTER 2020-07-25 06:01 | Day surgery (SDC) | payer BC, OTHER ==
[~2020-07-25] VITALS: Ht 185.4 cm; Wt 84.4 kg
[~2020-07-25 06:01] MED LIST changes: +LIDOCAINE 1% MDV 20ML VIAL SQ PRN
[2020-07-25] MEDS ORDERED: ceFAZolin SOD 2 GM in IV 1 EA IV ONE (07:00)
[2020-07-25] MEDS ORDERED: LR 1,000 ML IV ONE (07:00)
[2020-07-25] MEDS ORDERED: MIDAZOLAM INJ 2MG/2ML VIAL (J2250 PER 1MG) As Ordered ONE (07:02)
[2020-07-25] MEDS ORDERED: propofoL 200 MG/20 ML VIAL As Ordered ONE (07:03)
[2020-07-25] MEDS ORDERED: LIDOCAINE 2% 100MG/5ML SDV (FOR ANES.) As Ordered ONE (07:03)
[2020-07-25] MEDS ORDERED: fentaNYL 100 MCG/2 ML INJECTION (J3010) As Ordered ONE (07:03)
--- NOTE | 2020-07-25 07:34 | REP ---
INDICATION: KIDNEY STONE- KUB PRIOR TO SDC COMPARISON: 07/10/2020 TECHNIQUE: Supine view of the abdomen and pelvis. FINDINGS: Evaluation is somewhat limited due to overlying bowel gas and technique. However small intrarenal calculi (left greater than right) measuring up to 3 mm are suggested. Further evaluation of the urinary tract system is limited. Vascular calcifications and phleboliths noted in the pelvis. The bowel gas pattern is nonspecific. No organomegaly. No foreign body. Skeletal structures intact. IMPRESSION: Findings suggest few nonobstructing intrarenal calculi (left greater than right). <Electronically signed by Satish Martínez > 07/25/20 0784
[2020-07-25] MEDS ORDERED: PHENYLephrine 500MCG 5ML (100MCG/ML) SYRINGE As Ordered ONE (08:45)
[2020-07-25] MEDS ORDERED: ePHEDrine SULFATE 25 MG/5 ML(5MG/ML) SYRINGE As Ordered ONE (08:45)
[2020-07-25] MEDS ORDERED: FLOM0.4C39 PO (08:52)
--- NOTE | 2020-07-25 09:02 | ROOPDOC ---
[facility] Report Of Operation Report of Operation DATE OF PROCEDURE: 07/25/20 PREOPERATIVE DIAGNOSIS: Left kidney stone. POSTOPERATIVE DIAGNOSIS: Left kidney stone. PROCEDURE: Left extracorporeal shock wave lithotripsy SURGEON: Cricket John MD MACHINE ENGINEER: None ANESTHESIA: MAC. OPERATIVE INDICATIONS: This 60-year-old male was found to have an approximately 8mm upper pole left kidney stone. He is brought to the operating room today to treat this stone. DESCRIPTION OF PROCEDURE: The patient was brought to the operating room and MAC anesthesia was administered. Prophylactic antibiotics were infused. Fluoroscopy and ultrasonography were utilized to monitor stone position and fragmentation throughout the procedure. Shockwaves were then delivered to the left-sided kidney stone ungated. The stone appeared to fragment well. After 2,500 shocks the procedure was concluded. There were no arrhythmias. The patient was then awakened from anesthesia and transported to the recovery room in stable condition. ESTIMATED BLOOD LOSS: 0mL. COMPLICATIONS: None. SPECIMENS: None. PLAN: The patient will follow up in the urology clinic in a few weeks with imaging prior to assess for residual stone burden. CRICKET JOHN MD Jul 25, 2020 08:57
[2020-07-25 09:45] VITALS: BP 167/87
[2020-07-25] MEDS ORDERED: ONDANSETRON 4MG/2ML VIAL IV PRN (09:45)
[2020-07-25] MEDS ORDERED: LR 1,000 ML IV SCH (09:45)
[2020-07-25] MEDS ORDERED: PERCOCET 5MG/325MG TAB PO PRN ×2 (09:45)
== END 2020-07-25 10:11 | disposition home or self-care (01) ==
LOC: M SDC 06:01
PROVIDERS: ATTEND Urology
DX: N20.0 Calculus of kidney (principal); E78.5 Hyperlipidemia, unspecified; Z86.711 Personal history of pulmonary embolism; Z79.01 Long term (current) use of anticoagulants; Z91.030 Bee allergy status; Z79.899 Other long term (current) drug therapy
CPT/HCPCS: 50590; 74018; J0690; J2250; J2370; J3010

== ENCOUNTER → 2020-08-20 | Outpatient (CLI) | payer BC, OTHER ==
[~2020-08-20] MED LIST changes: -LIDOCAINE 1% MDV 20ML VIAL SQ PRN
--- NOTE | 2020-08-20 13:25 | REPPI ---
INDICATION: KIDNEY STONES COMPARISON: 07/25/2020 TECHNIQUE: Two supine views of the abdomen and pelvis. FINDINGS: Evaluation of the urinary tract system is limited but small intrarenal calculi (left greater than right) are again suggested and similar to prior examination. Bowel gas pattern is nonspecific and without obstruction or perforation. No organomegaly. No abnormal calcifications. Skeletal structures intact. IMPRESSION: Small bilateral nephroliths (left greater than right). Normal abdominal radiograph. <Electronically signed by Satish Martínez > 08/20/20 2558
== END ==
LOC: M PLAIMG 12:22
PROVIDERS: ATTEND Nurse Practitioner Family
DX: N20.0 Calculus of kidney (principal)

== ENCOUNTER → 2022-02-17 | Outpatient (CLI) | payer BC, OTHER ==
[~2022-02-17] MED LIST changes: -D31000TA2 PO; -MONT10TA10 PO; +MONT10TA97 PO; +VITA100093 PO
== END ==
LOC: M ADAMS 11:02
PROVIDERS: ATTEND Nurse Practitioner Family
DX: N20.0 Calculus of kidney (principal)

== ENCOUNTER → 2022-02-18 | Outpatient (REF) | payer OTHER ==
[2022-02-18 13:49] LABS: BLOOD UREA NITROGEN 22 MG/DL (7-18); CALCIUM LEVEL 9.2 MG/DL (8.8-10.2); CARBON DIOXIDE LEVEL 27 MEQ/L (21-32); CHLORIDE LEVEL 109 MEQ/L (98-107); CREATININE FOR GFR 1.24 MG/DL (0.70-1.30); GLOMERULAR FILTRATION RATE > 60.0 (>49); GLUCOSE, FASTING 90 MG/DL (70-100); POTASSIUM SERUM 4.2 MEQ/L (3.5-5.1); SODIUM LEVEL 142 MEQ/L (136-145)
[2022-02-18 15:21] LABS: APPEARANCE, URINE MANUAL CLEAR (CLEAR); COLOR, URINE MANUAL YELLOW (YELLOW)
[2022-02-18 15:23] LABS: BILIRUBIN, URINE MANUAL NEGATIVE (NEGATIVE); GLUCOSE, URINE (UA) MANUAL NEGATIVE (NEGATIVE); KETONE, URINE MANUAL NEGATIVE (NEGATIVE); LEUKOCYTE ESTERASE, URINE MAN NEGATIVE (NEGATIVE); NITRITE, URINE MANUAL NEGATIVE (NEGATIVE); PROTEIN, URINE MANUAL TRACE mg/dL (NEGATIVE); UROBILINOGEN, URINE MANUAL NORMAL (NORMAL)
[2022-02-18 15:24] LABS: BLOOD URINE MANUAL POSITIVE (NEGATIVE)
[2022-02-18 15:32] LABS: SQUAMOUS EPITHELIAL CELL URINE SMALL AMOUNT /hpf (SMALL AMT)
[2022-02-18 15:33] LABS: BACTERIA, URINE SMALL AMOUNT; CALCIUM OXALATE CRYSTALS,URINE MOD AMOUNT /hpf; HYALINE CAST, URINE NONE SEEN /lpf (0-1); MUCUS, URINE MOD AMOUNT (NEGATIVE)
== END ==
LOC: M SFHCADAM 09:27
PROVIDERS: ATTEND Urology
DX: R31.0 Gross hematuria (principal)

== ENCOUNTER → 2022-03-02 | Outpatient (CLI) | payer BC, OTHER ==
[~2022-03-02] MED LIST changes: +ISOVUE-370 76% 100ML VIAL As Ordered ONE
== END ==
LOC: M RAD 14:14
PROVIDERS: ATTEND Urology
DX: R31.0 Gross hematuria (principal)

== ENCOUNTER → 2023-02-25 | Outpatient (CLI) | payer BC, OTHER ==
[~2023-02-25] MED LIST changes: -ISOVUE-370 76% 100ML VIAL As Ordered ONE
== END ==
LOC: M ADAMS 10:36
PROVIDERS: ATTEND Urology
DX: N20.0 Calculus of kidney (principal); R14.0 Abdominal distension (gaseous)

== ENCOUNTER → 2023-03-03 | Outpatient (REF) | payer OTHER, BC ==
[2023-03-03 16:17] LABS: APPEARANCE, URINE HAZY (CLEAR); BACTERIA, URINE AUTO NEGATIVE (NEGATIVE); BILIRUBIN, URINE AUTO NEGATIVE (NEGATIVE); BLOOD, URINE BLOOD 3+ (NEGATIVE); CALCIUM OXALATE CRYSTALS LARGE; COLOR, URINE YELLOW (YELLOW); GLUCOSE, URINE (UA) AUTO NEGATIVE (NEGATIVE); KETONE, URINE AUTO NEGATIVE (NEGATIVE); LEUKOCYTE ESTERASE, URINE AUTO NEGATIVE (NEGATIVE); MUCUS, URINE SMALL (NEGATIVE); NITRITE, URINE AUTO NEGATIVE (NEGATIVE); PROTEIN, URINE AUTO 1+ mg/dL (NEGATIVE); RBC, URINE AUTO TNTC /HPF (0-3); SPECIFIC GRAVITY URINE AUTO 1.017 (1.002-1.035); SQUAMOUS EPITHELIAL CELL UR AU 0 /HPF (0-6); UROBILINOGEN, URINE AUTO 0.2 mg/dL (0.0-2.0); WBC, URINE AUTO 1 /HPF (0-3)
== END ==
LOC: M SMT 15:22
PROVIDERS: ATTEND Urology
DX: N20.0 Calculus of kidney (principal)

== ENCOUNTER → 2023-04-30 | Outpatient (REF) | payer BC ==
[~2023-04-30] MED LIST changes: +BUSP10TA PO; +SERT25TA21 PO
== END ==
LOC: M SFHCADAM 10:41
PROVIDERS: ATTEND Urology
DX: Z12.5 Encounter for screening for malignant neoplasm of prostate (principal)

== ENCOUNTER 2023-09-22 06:43 | Day surgery (SDC) | payer BC, OTHER ==
[~2023-09-22] VITALS: Ht 182.9 cm; Wt 84.0 kg
[~2023-09-22 06:43] MED LIST changes: +CIDA500T2 PO; +NS 1,000 ML IV ONE; +OMEG10002 PO; +ZOLO100T PO
[2023-09-22] MEDS ORDERED: LIDOCAINE 2% 100MG/5ML SDV (FOR ANES.) As Ordered ONE (08:24)
[2023-09-22] MEDS ORDERED: propofoL 200 MG/20 ML VIAL As Ordered ONE (08:24)
[2023-09-22 08:37] VITALS: BP 121/78; O2SAT 95
== END 2023-09-22 08:44 | disposition home or self-care (01) ==
LOC: M OPP 06:43
PROVIDERS: ATTEND Internal Medicine Gastroenterology
DX: Z12.11 Encounter for screening for malignant neoplasm of colon (principal); Z86.010 Personal history of colon polyps; Z83.718 Family history of other colon polyps; K64.0 First degree hemorrhoids; K57.30 Diverticulosis of large intestine without perforation or abscess without bleeding; Z79.01 Long term (current) use of anticoagulants; Z79.02 Long term (current) use of antithrombotics/antiplatelets; Z79.899 Other long term (current) drug therapy; Z91.030 Bee allergy status

== ENCOUNTER 2024-01-11 14:01 | Emergency (ER) | payer BC ==
[~2024-01-11] VITALS: Ht 182.9 cm; Wt 87.7 kg
[~2024-01-11 14:01] MED LIST changes: -NS 1,000 ML IV ONE
[2024-01-11 17:34] LABS: RSV AMPLIFICATION NEGATIVE (NEGATIVE)
[2024-01-11 18:24] VITALS: TEMP 98
[2024-01-11] MEDS: diphenhydrAMINE 50MG/ML VIAL IV ONE (23:10)
[2024-01-11] MEDS: NS 1,000 ML IV ONE (23:10)
[2024-01-11] MEDS: METOCLOPRAMIDE INJ 10MG/2ML VIAL IV ONE (23:17)
[2024-01-11] MEDS: KETOROLAC 30 MG/ML 1ML VIAL IV ONE (23:17)
[2024-01-12] MEDS: MORPHINE 4 MG/ML 1ML VIAL IV PRN (00:30)
[2024-01-12 01:30] VITALS: BP 150/90; O2SAT 94
[2024-01-12] MEDS: OXYCODONE/APAP 5MG/325MG(HOME DOSE PACK) PO ONE (01:31)
[2024-01-12] MEDS ORDERED: HYDR-3713 PO (20:52)
[2024-01-12] MEDS ORDERED: FLOM0.4C39 PO (20:52)
== END 2024-01-12 01:37 | disposition home or self-care (01) ==
LOC: M ED 14:01
DX: J01.10 Acute frontal sinusitis, unspecified (principal); E78.5 Hyperlipidemia, unspecified; F41.1 Generalized anxiety disorder; F10.10 Alcohol abuse, uncomplicated; Z86.718 Personal history of other venous thrombosis and embolism; Z87.442 Personal history of urinary calculi; Z91.030 Bee allergy status; Z79.2 Long term (current) use of antibiotics; Z79.899 Other long term (current) drug therapy
CPT/HCPCS: 87631; 96361; 96374; 96375; 99284; J1200; J1885; J2765

== ENCOUNTER 2024-01-12 14:13 | Emergency (ER) | payer BC ==
[~2024-01-12] VITALS: Ht 182.9 cm; Wt 84.1 kg
[2024-01-12 15:13] LABS: BASO # 0.1 10^3/uL (0.0-0.2); BASO % 1.2 % (0.0-1.0); EOS # 0.1 10^3/uL (0.0-0.5); EOS % 1.6 % (0.0-3.0); HEMATOCRIT 41.3 % (42.0-52.0); HEMOGLOBIN 14.5 g/dl (13.5-17.5); LYMPH # 1.3 10^3/uL (1.5-5.0); LYMPH % 23.3 % (24.0-44.0); MEAN CORPUSCULAR HEMOGLOBIN 34.5 pg (27.0-33.0); MEAN CORPUSCULAR HGB CONC 35.1 g/dl (32.0-36.5); MEAN CORPUSCULAR VOLUME 98.3 fl (80.0-96.0); MONO # 0.5 10^3/uL (0.0-0.8); MONO % 8.5 % (2.0-8.0); NEUTROPHILS # 3.8 10^3/uL (1.5-8.5); NEUTROPHILS % 65.1 % (36.0-66.0); PLATELET COUNT, AUTOMATED 199 10^3/uL (150-450); WHITE BLOOD COUNT 5.8 10^3/uL (4.0-10.0)
[2024-01-12 15:48] LABS: BLOOD UREA NITROGEN 25 MG/DL (9-23); CALCIUM LEVEL 9.5 MG/DL (8.3-10.6); CARBON DIOXIDE LEVEL 26 MMOL/L (20-31); CHLORIDE LEVEL 109 MMOL/L (98-107); CREATININE FOR GFR 1.19 MG/DL (0.70-1.30); GLOMERULAR FILTRATION RATE > 60.0 (>49); GLUCOSE, FASTING 127 MG/DL (74-106); POTASSIUM SERUM 4.1 MMOL/L (3.5-5.1); SODIUM LEVEL 140 MMOL/L (136-145)
[2024-01-12 18:08] VITALS: TEMP 98
[2024-01-12] MEDS: MORPHINE 4 MG/ML 1ML VIAL IV ONE (19:12)
[2024-01-12] MEDS: NS 1,000 ML IV ONE (19:12)
[2024-01-12] MEDS: ONDANSETRON 4MG 2ML VIAL IV ONE (19:12)
[2024-01-12] MEDS ORDERED: HYDR-3713 PO (20:52)
[2024-01-12] MEDS ORDERED: FLOM0.4C39 PO (20:52)
[2024-01-12] MEDS: TAMSULOSIN 0.4 MG CAP PO ONE (21:05)
[2024-01-12] MEDS: NORCO, ANEXSIA 5/325MG TABLET (HYDROcodone/ACETAMINOPHEN) PO ONE (21:06)
[2024-01-12 21:12] VITALS: BP 162/102; O2SAT 100
== END 2024-01-12 21:14 | disposition home or self-care (01) ==
LOC: M ED 14:13
DX: N20.1 Calculus of ureter (principal); N28.1 Cyst of kidney, acquired; N40.0 Benign prostatic hyperplasia without lower urinary tract symptoms; M48.061 Spinal stenosis, lumbar region without neurogenic claudication; F10.10 Alcohol abuse, uncomplicated; Z87.442 Personal history of urinary calculi; Z86.718 Personal history of other venous thrombosis and embolism; Z91.030 Bee allergy status; Z79.2 Long term (current) use of antibiotics; Z79.899 Other long term (current) drug therapy
CPT/HCPCS: 74176; 80048; 81000; 81015; 85025; 87086; 96361; 96374; 99284; J2405

== ENCOUNTER → 2024-01-20 | Outpatient (CLI) | payer BC ==
[~2024-01-20] MED LIST changes: +HYDR-3713 PO
== END ==
LOC: M PLAIMG 08:59
PROVIDERS: ATTEND Internal Medicine
DX: N13.2 Hydronephrosis with renal and ureteral calculous obstruction (principal)

== ENCOUNTER → 2024-02-02 | Outpatient (CLI) | payer BC ==
[~2024-02-02] MED LIST changes: +PROHANCE 279.3MG/ML 15ML VIAL ONE; +PROHANCE 279.3MG/ML 5ML VIAL ONE
== END ==
LOC: M PLAIMG 10:14
PROVIDERS: ATTEND Internal Medicine
DX: R51.9 Headache, unspecified (principal); R27.0 Ataxia, unspecified; J34.1 Cyst and mucocele of nose and nasal sinus
CPT/HCPCS: 70553; A9576

== ENCOUNTER → 2024-03-09 | Outpatient (CLI) | payer BC ==
[~2024-03-09] MED LIST changes: -PROHANCE 279.3MG/ML 15ML VIAL ONE; -PROHANCE 279.3MG/ML 5ML VIAL ONE
== END ==
LOC: M ADAMS 13:11
PROVIDERS: ATTEND Urology
DX: Z01.818 Encounter for other preprocedural examination (principal); N20.0 Calculus of kidney

== ENCOUNTER → 2024-03-09 | Outpatient (REF) | payer BC ==
[2024-03-09 13:00] LABS: INR 1.1; PROTHROMBIN TIME 14.5 SECONDS (12.5-14.5)
== END ==
LOC: M LAB REF 12:26
PROVIDERS: ATTEND Internal Medicine
DX: Z01.818 Encounter for other preprocedural examination (principal)

== ENCOUNTER → 2024-03-22 | Outpatient (REF) | payer BC, OTHER ==
[~2024-03-22] MED LIST changes: +LEVOTAB10 PO
[2024-03-22 12:51] LABS: APPEARANCE, URINE CLEAR (CLEAR); BACTERIA, URINE AUTO NEGATIVE (NEGATIVE); BILIRUBIN, URINE AUTO NEGATIVE (NEGATIVE); BLOOD, URINE BLOOD NEGATIVE (NEGATIVE); COLOR, URINE YELLOW (YELLOW); GLUCOSE, URINE (UA) AUTO NEGATIVE (NEGATIVE); KETONE, URINE AUTO NEGATIVE (NEGATIVE); LEUKOCYTE ESTERASE, URINE AUTO NEGATIVE (NEGATIVE); NITRITE, URINE AUTO NEGATIVE (NEGATIVE); PROTEIN, URINE AUTO NEGATIVE (NEGATIVE); RBC, URINE AUTO 2 /HPF (0-3); SPECIFIC GRAVITY URINE AUTO 1.011 (1.002-1.035); SQUAMOUS EPITHELIAL CELL UR AU 0 /HPF (0-6); UROBILINOGEN, URINE AUTO 0.2 mg/dL (0.0-2.0); WBC, URINE AUTO 1 /HPF (0-3)
== END ==
LOC: M LAB REF 12:03
PROVIDERS: ATTEND Internal Medicine
DX: Z01.818 Encounter for other preprocedural examination (principal)

== ENCOUNTER 2024-03-30 06:41 | Day surgery (SDC) | payer BC ==
[~2024-03-30] VITALS: Ht 182.9 cm; Wt 90.4 kg
[2024-03-30] MEDS ORDERED: propofoL 200 MG/20 ML VIAL As Ordered ONE (06:45)
[2024-03-30] MEDS ORDERED: LIDOCAINE 2% 100MG/5ML SDV (FOR ANES.) As Ordered ONE (06:45)
[2024-03-30] MEDS ORDERED: ONDANSETRON 4MG 2ML VIAL As Ordered ONE (06:46)
[2024-03-30] MEDS ORDERED: KETOROLAC 60MG 2ML VIAL As Ordered ONE (06:46)
[2024-03-30] MEDS ORDERED: fentaNYL 100 MCG/2 ML INJECTION As Ordered ONE (06:47)
[2024-03-30] MEDS ORDERED: MIDAZOLAM INJ 2MG/2ML VIAL As Ordered ONE (06:47)
[2024-03-30] MEDS ORDERED: LR 1,000 ML IV SCH (07:25)
[2024-03-30] MEDS ORDERED: ACETAMINOPHEN 1000MG/100ML IV BAG As Ordered ONE (07:58)
[2024-03-30] MEDS: ceFAZolin SOD 2 GM in IV 1 EA IV ONE (08:30)
[2024-03-30] MEDS ORDERED: ePHEDrine SULFATE 25 MG/5 ML(5MG/ML) SYRINGE As Ordered ONE (08:36)
[2024-03-30 09:50] VITALS: BP 144/79; TEMP 97.1; O2SAT 98
== END 2024-03-30 09:56 | disposition home or self-care (01) ==
LOC: M SDC 06:41
PROVIDERS: ATTEND Urology
DX: N20.0 Calculus of kidney (principal); N28.1 Cyst of kidney, acquired; E78.00 Pure hypercholesterolemia, unspecified; Z79.899 Other long term (current) drug therapy; Z79.01 Long term (current) use of anticoagulants; Z91.030 Bee allergy status; Z86.718 Personal history of other venous thrombosis and embolism
CPT/HCPCS: 50590; 74018; J0131; J0690; J1100; J1885; J2250; J2405; J3010

== ENCOUNTER → 2024-04-24 | Outpatient (CLI) | payer BC | LOC: M WUC 13:10 | PROVIDERS: ATTEND Urology | DX: N20.0 Calculus of kidney (principal) ==

== ENCOUNTER → 2024-04-25 | Outpatient (CLI) | payer BC | LOC: M PLALAB 11:55 | PROVIDERS: ATTEND Nurse Practitioner Family | DX: Z12.5 Encounter for screening for malignant neoplasm of prostate (principal); N20.0 Calculus of kidney ==